=== PATIENT | male | born 1980 | race Caucasian/White ===

== ENCOUNTER 2017-01-12 13:02 | Inpatient (IN) | payer MEDICAID, OTHER ==
--- NOTE | 2017-01-12 13:59 | ED ---
General Adult HPI - General Chief complaint: Altered Mental Status Stated complaint: Petition Time Seen by Provider: 01/12/17 13:24 Source: patient, police, RN notes reviewed, old records reviewed Mode of arrival: ambulatory Limitations: no limitations - History of Present Illness Initial comments: This is a 36-year-old male the ER for evaluation, patient is coming in today for evaluation of altered mental status, recent drug use, suicidal thoughts, patient resell colon mass, patient in by PD and petition for psychiatric evaluation - Related Data Home Medications Medication Instructions Recorded Confirmed Cymbalta(Unknown Dose) 1 cap PO DAILY 01/12/17 01/12/17 Naproxen Sodium [Aleve] 220 mg PO BID PRN 01/12/17 01/12/17 Allergies Allergy/AdvReac Type Severity Reaction Status Date / Time No Known Allergies Allergy Verified 01/12/17 13:58 Review of Systems ROS Statement: Those systems with pertinent positive or pertinent negative responses have been documented in the HPI. ROS Other: All systems not noted in ROS Statement are negative. Past Medical History Past Medical History: No Reported History Additional Past Medical History / Comment(s): Congenital Bilat Hearing loss. Pt states he did have bilat hearing aids, however "they broke and I don't have them anymore." History of Any Multi-Drug Resistant Organisms: None Reported Past Surgical History: No Surgical Hx Reported Past Anesthesia/Blood Transfusion Reactions: No Reported Reaction Past Psychological History: Depression Smoking Status: Current every day smoker Past Alcohol Use History: Heavy Additional Past Alcohol Use History / Comment(s): pt reports using 1/2 joint approx 1 x month Past Drug Use History: Cocaine, Heroin, IV Drug Use, Marijuana, Methamphetamine , Opiates, Prescription Drug Abuse Additional Drug Use History / Comment(s): Last used "a couple months ago." General Exam Limitations: no limitations General appearance: alert, in no apparent distress Head exam: Present: atraumatic, normocephalic, normal inspection Eye exam: Present: normal appearance, PERRL, EOMI. Absent: scleral icterus, conjunctival injection, periorbital swelling ENT exam: Present: normal exam, mucous membranes moist Neck exam: Present: normal inspection. Absent: tenderness, meningismus, lymphadenopathy Respiratory exam: Present: normal lung sounds bilaterally. Absent: respiratory distress, wheezes, rales, rhonchi, stridor Cardiovascular Exam: Present: regular rate, normal rhythm, normal heart sounds. Absent: systolic murmur, diastolic murmur, rubs, gallop, clicks GI/Abdominal exam: Present: soft, normal bowel sounds. Absent: distended, tenderness, guarding, rebound, rigid Extremities exam: Present: normal inspection, full ROM, normal capillary refill. Absent: tenderness, pedal edema, joint swelling, calf tenderness Back exam: Present: normal inspection Neurological exam: Present: alert, oriented X3, CN II-XII intact Psychiatric exam: Present: normal affect, normal mood Skin exam: Present: warm, dry, intact, normal color. Absent: rash Course Vital Signs 01/12/17 13:20 Pulse Rate 80 Respiratory 14 Rate Blood Pressure 136/76 O2 Sat by Pulse 99 Oximetry - Reevaluation(s) Reevaluation #1: 01/12/17 13:58 Patient's medically clear for psychiatric evaluation Medical Decision Making - Medical Decision Making 36 male who was seen and evaluated by psychiatry determined in the inpatient psychiatric evaluation and treatment Disposition Clinical Impression: Suicidal ideation, Depression Disposition: TRANSFER TO PSYCH HOSP/UNIT Condition: Fair Referrals: Tera Spann MD [Primary Care Provider] - 1-2 days
[2017-01-12] MEDS ORDERED: LORazepam 1 MG TAB PO STA ×2 (14:55→14:57)
[2017-01-12] MEDS ORDERED: LORazepam 2 MG/ML SYRINGE IM STA (15:25)
[2017-01-12] MEDS ORDERED: diphenhydrAMINE 50 MG/ML 1 ML VIAL IM STA (15:37)
[2017-01-12 16:20] LABS: ALT 70 U/L (21-72); AST 90 U/L (17-59); Alkaline Phosphatase 104 U/L (38-126); Anion Gap 18 mmol/L; Aty Lym Flag Slight; Basophils # (A) 0.1 k/uL (0-0.2); Basophils % (A) 1 %; Blood Urea Nitrogen 17 mg/dL (9-20); CH 33.6; CHCM 37.2; Calcium 9.3 mg/dL (8.4-10.2); Carbon Dioxide 19 mmol/L (22-30); Chloride 101 mmol/L (98-107); Eosinophils # (A) 0.1 k/uL (0-0.7); Eosinophils % (A) 1 %; Glucose 86 mg/dL (74-99); HCT 47.1 % (39.0-53.0); HDW 2.93; HGB 16.5 gm/dL (13.0-17.5); Luc # (Auto) 0.93; Luc % (Auto) 6; Lymphocytes # (A) 3.8 k/uL (1.0-4.8); Lymphocytes % (A) 26 %; MCH 31.9 pg (25.0-35.0); MCHC 35.1 g/dL (31.0-37.0); MCV 90.7 fL (80.0-100.0); Mean Platelet Volume 6.1; Monocytes # (A) 1.2 k/uL (0-1.0); Monocytes % (A) 8 %; Neutrophils # (A) 8.5 k/uL (1.3-7.7); Neutrophils % (A) 58 %; Non-African American GFR(MDRD) >60 (>60 ml/min/1.73 sqM); Potassium 3.7 mmol/L (3.5-5.1); RBC 5.19 m/uL (4.30-5.90); RDW 13.1 % (11.5-15.5); Sodium 138 mmol/L (137-145); Total Bilirubin 1.5 mg/dL (0.2-1.3); WBC 14.7 k/uL (3.8-10.6); WBC (Perox) 15.04
--- NOTE | 2017-01-12 16:32 | ED ---
Medical Decision Making - Lab Data Result diagrams: 01/12/17 16:00 01/12/17 16:00 Lab Results 01/12/17 01/12/17 Range/Units 16:00 16:00 WBC 14.7 H (3.8-10.6) k/uL RBC 5.19 (4.30-5.90) m/uL Hgb 16.5 (13.0-17.5) gm/dL Hct 47.1 (39.0-53.0) % MCV 90.7 (80.0-100.0) fL MCH 31.9 (25.0-35.0) pg MCHC 35.1 (31.0-37.0) g/dL RDW 13.1 (11.5-15.5) % Plt Count 271 (150-450) k/uL Neutrophils % 58 % Lymphocytes % 26 % Monocytes % 8 % Eosinophils % 1 % Basophils % 1 % Neutrophils # 8.5 H (1.3-7.7) k/uL Lymphocytes # 3.8 (1.0-4.8) k/uL Monocytes # 1.2 H (0-1.0) k/uL Eosinophils # 0.1 (0-0.7) k/uL Basophils # 0.1 (0-0.2) k/uL Sodium 138 (137-145) mmol/L Potassium 3.7 (3.5-5.1) mmol/L Chloride 101 (98-107) mmol/L Carbon Dioxide 19 L (22-30) mmol/L Anion Gap 18 mmol/L BUN 17 (9-20) mg/dL Creatinine 0.90 (0.66-1.25) mg/dL Est GFR (MDRD) Af Amer >60 (>60 ml/min/1.73 sqM) Est GFR (MDRD) Non-Af >60 (>60 ml/min/1.73 sqM) Glucose 86 (74-99) mg/dL Calcium 9.3 (8.4-10.2) mg/dL Total Bilirubin 1.5 H (0.2-1.3) mg/dL AST 90 H (17-59) U/L ALT 70 (21-72) U/L Alkaline Phosphatase 104 (38-126) U/L Total Protein 8.0 (6.3-8.2) g/dL Albumin 4.6 (3.5-5.0) g/dL Disposition Clinical Impression: Suicidal ideation, Depression Disposition: TRANSFER TO PSYCH HOSP/UNIT Condition: Fair Referrals: Tera Spann MD [REFERRING] - 1-2 days Procedures - Restraint - Face to Face Restraint Occurrence 1 Patient's Immediate Situation: Endangers self safety, Endangers others' safety Patient's Reaction to the Intervention: Uncooperative, Angry, Belligerent, Nervous, Aggressive Patient's Medical & Behavioral Condition: Anxious Need to Continue or Terminate Restraint or Seclusion: Continue
[2017-01-12 16:36] LABS: Manual Review Performed
[2017-01-13] MEDS ORDERED: Acetaminophen-Codeine 300-30mg TAB PO STA (10:39)
[2017-01-13] MEDS ORDERED: HYDROcodone/APAP 5-325MG 1 EACH TAB PO STA (10:40)
[2017-01-13] MEDS ORDERED: MAG HYDROX/AL HYDROX/SIMETH 30 ML CUP PO PRN (12:42)
[2017-01-13] MEDS ORDERED: ZIPRASIDONE 20 MG VIAL IM PRN (12:42)
[2017-01-13] MEDS ORDERED: MAGNESIUM HYDROXIDE 2,400 MG/10 ML CUP PO PRN (12:42)
[2017-01-13] MEDS ORDERED: LORazepam 2 MG/ML SYRINGE IM PRN (12:46)
[2017-01-13] MEDS: NICOTINE 21MG/24HR PATCH TRANSDERM SCH (12:54)
[2017-01-13] MEDS ORDERED: WATER FOR INJECTION, STERILE 10 ML IV ONE (12:57)
[2017-01-14] MEDS: LORazepam 1 MG TAB PO PRN ×2 (04:09→15:46)
[2017-01-14] MEDS: ACETAMINOPHEN TAB 325 MG TAB PO PRN ×2 (04:09→15:45)
[2017-01-14 05:44] VITALS: BP 124/77; PULSE 99; RESP 20; TEMP 98.1
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
[2017-01-14] MEDS: NICOTINE 21MG/24HR PATCH TRANSDERM SCH (09:02)
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
--- NOTE | 2017-01-14 13:46 | P.DS ---
Providers Date of admission: 01/13/17 12:19 Attending physician: Josué Blackwell MD Consults: 01/13/17 21:16 Consult Physician Routine Consulting Provider: Faraz Melendrez Reason/Comments: h&p Do you want consulting provider notified?: Already Contacted Primary care physician: Faraz Melendrez - Discharge Diagnosis(es) (1) Amphetamine-induced psychotic disorder Current Visit: Yes Status: Resolved Priority: High (2) Methamphetamine use disorder, moderate Current Visit: Yes Status: Chronic Priority: High (3) Opioid use disorder, severe, dependence Current Visit: Yes Status: Chronic Priority: Medium Hospital Course: He is 36-year-old single male who has a history of polysubstance use disorder. He presented to the [facility] in voluntarily but signed consent for voluntary admission when he arrived on the psychiatric unit. He had a history of psychosis developing in the context of IV use of methamphetamine. He received a biopsychosocial psychosocial assessment on the unit. The it consultant tube washer completed the physical examination. Although his management in the ED he required IM sedatives and restraint he showed no behavioral problems when he arrived on the psychiatric unit. His psychosis quickly abated and on the second day of admission he showed no signs or symptoms of psychosis. His thinking was concrete but organized, coherent and goal directed. He expressed no psychotic symptoms such as auditory or visual hallucinations, ideas reference, thought insertion, thought broadcasting or thought control. He recognized that his admission and changes in mental status was related to his IV use of methamphetamine. He expressed interest in outpatient mental health and substance abuse treatment. The social insurance administrator has arranged for him to have an appointment with [facility]. Time of discharge he denied thoughts of or suicide. He denied homicidal ideation towards his uncle. Patient Condition at Discharge: Fair Plan - Discharge Summary New Discharge Prescriptions: Nicotine 21Mg/24Hr Patch [Habitrol] 1 patch TRANSDERM DAILY #14 patch Discharge Medication List Cymbalta(Unknown Dose) 1 cap PO DAILY 01/12/17 [History] Naproxen Sodium [Aleve] 220 mg PO BID PRN 01/12/17 [History] Nicotine 21Mg/24Hr Patch [Habitrol] 1 patch TRANSDERM DAILY #14 patch 01/14/17 [ Rx] Follow up Appointment(s)/Referral(s): [facility] [Outside] - 02/27/17 3:00 pm (w/ Belkis Deutsch) Tera Spann MD [REFERRING] - 1-2 days Discharge Disposition: HOME SELF-CARE
== END 2017-01-14 16:07 | disposition home or self-care (01) | DRG 897 ==
LOC: EC 13:02 → 3MHU 01-13 12:19
PROVIDERS: ADMIT Psychiatry & Neurology Psychiatry; ATTEND Psychiatry & Neurology Psychiatry
DX: F19.259 Other psychoactive substance dependence with psychoactive substance-induced psychotic disorder, unspecified (principal); R45.851 Suicidal ideations; F90.9 Attention-deficit hyperactivity disorder, unspecified type; H90.3 Sensorineural hearing loss, bilateral; Z78.1 Physical restraint status; F32.9 Major depressive disorder, single episode, unspecified; F60.2 Antisocial personality disorder; R45.850 Homicidal ideations; R21 Rash and other nonspecific skin eruption; F17.200 Nicotine dependence, unspecified, uncomplicated; Z79.1 Long term (current) use of non-steroidal anti-inflammatories (NSAID); Z79.899 Other long term (current) drug therapy; Z86.19 Personal history of other infectious and parasitic diseases; Z62.810 Personal history of physical and sexual abuse in childhood; Z65.3 Problems related to other legal circumstances; Z81.3 Family history of other psychoactive substance abuse and dependence; Z71.51 Drug abuse counseling and surveillance of drug abuser
CPT/HCPCS: 36415; 80053; 80306; 82075; 84443; 85025; 99285

== ENCOUNTER 2017-01-31 06:46 | Inpatient (IN) | payer MEDICAID, OTHER ==
--- NOTE | 2017-01-31 07:24 | ED ---
Psych HPI - General Chief Complaint: Psychiatric Symptoms Stated Complaint: mental health Time Seen by Provider: 01/31/17 07:00 Source: patient, RN notes reviewed Mode of arrival: ambulatory - History of Present Illness Initial Comments: Is a 36-year-old male history depression and history of drug abuse who is here today because he is feeling depressed and suicidal. He's had thoughts of shooting himself overdosing jumping off a bridge spine and is recovering addict be states she used methamphetamine and heroin 5 days ago he also used marijuana last night. He denies any alcohol use. He does have prior suicide attempts apparently. He denies any fevers chills nausea vomiting sweats or other symptoms MD Complaint: suicidal ideation, feels depressed - Related Data Home Medications Medication Instructions Recorded Confirmed Cymbalta(Unknown Dose) 1 cap PO DAILY 01/12/17 01/12/17 Naproxen Sodium [Aleve] 220 mg PO BID PRN 01/12/17 01/12/17 Previous Rx's Medication Instructions Recorded Nicotine 21Mg/24Hr Patch [Habitrol] 1 patch TRANSDERM DAILY #14 patch 01/14/17 Allergies Allergy/AdvReac Type Severity Reaction Status Date / Time No Known Allergies Allergy Verified 01/14/17 16:04 Review of Systems ROS Statement: Those systems with pertinent positive or pertinent negative responses have been documented in the HPI. ROS Other: All systems not noted in ROS Statement are negative. Past Medical History Past Medical History: No Reported History Additional Past Medical History / Comment(s): Congenital Bilat Hearing loss. Pt states he did have bilat hearing aids, however "they broke and I don't have them anymore." History of Any Multi-Drug Resistant Organisms: None Reported Past Surgical History: No Surgical Hx Reported Past Anesthesia/Blood Transfusion Reactions: No Reported Reaction Past Psychological History: Depression Smoking Status: Current every day smoker Past Alcohol Use History: Heavy Additional Past Alcohol Use History / Comment(s): pt reports using 1/2 joint approx 1 x month Past Drug Use History: Cocaine, Heroin, IV Drug Use, Marijuana, Methamphetamine , Opiates, Prescription Drug Abuse Additional Drug Use History / Comment(s): Last used "a couple months ago." General Exam - General Exam Comments Initial Comments: This is a well-developed well-nourished awake alert oriented 3 male Limitations: no limitations General appearance: alert, in no apparent distress Head exam: Present: atraumatic, normocephalic, normal inspection Eye exam: Present: normal appearance, PERRL, EOMI. Absent: scleral icterus, conjunctival injection, periorbital swelling ENT exam: Present: normal exam, mucous membranes moist Neck exam: Present: normal inspection. Absent: tenderness, meningismus, lymphadenopathy Respiratory exam: Present: normal lung sounds bilaterally. Absent: respiratory distress, wheezes, rales, rhonchi, stridor Cardiovascular Exam: Present: regular rate, normal rhythm, normal heart sounds. Absent: systolic murmur, diastolic murmur, rubs, gallop, clicks GI/Abdominal exam: Present: soft, normal bowel sounds. Absent: distended, tenderness, guarding, rebound, rigid Extremities exam: Present: normal inspection, full ROM, normal capillary refill. Absent: tenderness, pedal edema, joint swelling, calf tenderness Back exam: Present: normal inspection Neurological exam: Present: alert, oriented X3, CN II-XII intact Psychiatric exam: Present: depressed, flat affect, suicidal ideation Skin exam: Present: warm, dry, intact, normal color. Absent: rash Course Vital Signs 01/31/17 06:48 Temperature 96.8 F L Pulse Rate 68 Respiratory 20 Rate Blood Pressure 127/58 O2 Sat by Pulse 100 Oximetry Medical Decision Making - Medical Decision Making The patient was evaluated by the [facility] service patient will be admitted for inpatient treatment of depression and suicidal ideation. - Lab Data Lab Results 01/31/17 Range/Units 07:15 Urine Opiates Screen Detected H (NotDetected) Ur Oxycodone Screen Not Detected (NotDetected) Urine Methadone Screen Not Detected (NotDetected) Ur Propoxyphene Screen Not Detected (NotDetected) Ur Barbiturates Screen Not Detected (NotDetected) U Tricyclic Antidepress Not Detected (NotDetected) Ur Phencyclidine Scrn Not Detected (NotDetected) Ur Amphetamines Screen Detected H (NotDetected) U Methamphetamines Scrn Detected H (NotDetected) U Benzodiazepines Scrn Not Detected (NotDetected) Urine Cocaine Screen Not Detected (NotDetected) U Marijuana (THC) Screen Detected H (NotDetected) Disposition Clinical Impression: Depression, Suicidal ideation, Substance abuse Disposition: TRANSFER TO PSYCH HOSP/UNIT Condition: Stable
[2017-01-31] MEDS: NICOTINE 21MG/24HR PATCH TRANSDERM SCH (08:15)
[2017-01-31] MEDS ORDERED: ZIPRASIDONE 20 MG VIAL IM PRN (13:26)
[2017-01-31] MEDS ORDERED: MAG HYDROX/AL HYDROX/SIMETH 30 ML CUP PO PRN (13:26)
[2017-01-31] MEDS ORDERED: ACETAMINOPHEN TAB 325 MG TAB PO PRN (13:26)
[2017-01-31] MEDS ORDERED: MAGNESIUM HYDROXIDE 2,400 MG/10 ML CUP PO PRN (13:26)
[2017-01-31] MEDS ORDERED: LORazepam 1 MG TAB PO PRN (13:31)
[2017-01-31] MEDS: cloNIDine HCL 0.1 MG TAB PO SCH (19:40)
--- NOTE | 2017-01-31 20:48 | CONS ---
DATE OF CONSULTATION: 01/31/2017 I am covering for Dr. Melendrez. REASON FOR CONSULTATION: Advice regarding substance abuse and other issues, requested by Psychiatry. HISTORY OF PRESENT ILLNESS: This 36-year-old gentleman with a past medical history of congenital bilateral hearing loss, history of depression, history of nicotine dependence, polysubstance abuse, including cocaine, heroin and IV drug abuse, history of marijuana, history of methamphetamine, opiate prescription drug abuse, being followed by Dr. Melendrez in the outpatient setting, was admitted for psychiatric evaluation. The patient was feeling suicidal and depressed. The patient used methamphetamine and heroin about 5 days ago and used marijuana last night. There is no history of any fever, rigor, or chills. No history of any headache, loss of consciousness, seizures. The urine screen showed opiates, amphetamines as well as THC. The patient complained of occasional cough. PAST MEDICAL HISTORY: 1. History of polysubstance abuse. 2. History of depression. 3. History of nicotine dependence. 4. Congenital bilateral hearing loss. Medications are: 1. Cymbalta 60 mg daily. 2. Vitamin C 500 daily. 3. Aleve 440 mg b.i.d. p.r.n. ALLERGIES: NONE. FAMILY HISTORY: No history of heart disease or strokes in the family. SOCIAL HISTORY: Polysubstance abuse, including smoking and alcohol. REVIEW OF SYSTEMS: ENT: No diminished vision but diminished hearing, as mentioned earlier. CARDIOVASCULAR SYSTEM: No angina, palpitations. RESPIRATORY SYSTEM: No cough, hemoptysis. GI: No nausea, vomiting. : No dysuria. NERVOUS SYSTEM: No numbness or weakness. ALLERGY/IMMUNOLOGY: No asthma or hayfever. MUSCULOSKELETAL: As mentioned earlier. HEMATOLOGY/ONCOLOGY: No history of anemia. ENDOCRINE: No history of diabetes. CONSTITUTIONAL: As mentioned earlier. DERMATOLOGY: Negative. RHEUMATOLOGY: Negative. PSYCHIATRY: As mentioned earlier. PHYSICAL EXAMINATION: Patient is alert and oriented x3. Pulse is 67. Blood pressure is 117/62, respiration 16, temperature 97 degrees, pulse ox 97% on room air. HEENT: Conjunctivae normal. NECK: No jugular venous distention. CARDIOVASCULAR SYSTEM: S1, S2 muffled. RESPIRATORY SYSTEM: Breath sounds diminished at the bases. No rhonchi. No crackles. ABDOMEN: Soft, nontender. No mass palpable. LEGS: No edema. No swelling. NERVOUS SYSTEM: Higher functions as mentioned earlier. Moves all 4 limbs. No focal motor or sensory deficit. LYMPHATICS: No lymph node palpable in neck, axillae or groin. SKIN: No ulcer, rash, bleeding. LABS: UA noted. ASSESSMENT: 1. Status post polysubstance abuse. 2. Cough, possibly acute bronchitis. 3. History of nicotine dependence. 4. History of depression. 5. History of congenital bilateral deafness. 6. History of cocaine. 7. History of heroin. 8. History of IV drug abuse. 9. History of methamphetamine. 10. FULL CODE. RECOMMENDATIONS AND DISCUSSION: In this 36-year-old gentleman who presented with multiple complex medical issues, we will monitor the patient closely. I would wait for the basic labs; I will be happy to review any abnormalities in the basic labs. Otherwise, continue the current medications. The patient will be started on a small dose of clonidine. I would also recommend substance abuse counseling and rehab also. We will follow the patient closely. The patient may be asked to follow up with Dr. Melendrez closely after discharge. Thank you, Dr. Moreno, for letting us participate in the care of this patient.
[2017-02-01 08:38] LABS: Basophils # (A) 0.1 k/uL (0-0.2); Basophils % (A) 1 %; CH 32.7; CHCM 34.9; Eosinophils # (A) 0.2 k/uL (0-0.7); Eosinophils % (A) 3 %; HCT 48.2 % (39.0-53.0); HDW 3.06; HGB 16.2 gm/dL (13.0-17.5); Luc # (Auto) 0.25; Luc % (Auto) 4; Lymphocytes # (A) 2.4 k/uL (1.0-4.8); Lymphocytes % (A) 41 %; MCH 31.7 pg (25.0-35.0); MCHC 33.6 g/dL (31.0-37.0); MCV 94.3 fL (80.0-100.0); Mean Platelet Volume 6.4; Monocytes # (A) 0.4 k/uL (0-1.0); Monocytes % (A) 6 %; Neutrophils # (A) 2.5 k/uL (1.3-7.7); Neutrophils % (A) 44 %; RBC 5.11 m/uL (4.30-5.90); WBC 5.7 k/uL (3.8-10.6); WBC (Perox) 6.08
[2017-02-01 08:46] LABS: ALT 49 U/L (21-72); AST 41 U/L (17-59); Alkaline Phosphatase 75 U/L (38-126); Anion Gap 9 mmol/L; Blood Urea Nitrogen 12 mg/dL (9-20); Calcium 9.4 mg/dL (8.4-10.2); Carbon Dioxide 32 mmol/L (22-30); Chloride 102 mmol/L (98-107); Glucose 99 mg/dL (74-99); Non-African American GFR(MDRD) >60 (>60 ml/min/1.73 sqM); Potassium 4.5 mmol/L (3.5-5.1); Sodium 143 mmol/L (137-145); Total Bilirubin 0.8 mg/dL (0.2-1.3); Total Protein 7.5 g/dL (6.3-8.2)
[2017-02-01] MEDS: NICOTINE 21MG/24HR PATCH TRANSDERM SCH ×2 (08:46→08:48)
[2017-02-01] MEDS: cloNIDine HCL 0.1 MG TAB PO SCH (08:47)
[2017-02-01] MEDS ORDERED: DOXEPIN 10 MG CAP PO PRN (11:19)
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
[2017-02-01] MEDS: DULoxetine HCL 30 MG CAPSULE.DR PO SCH (12:12)
[2017-02-01] MEDS: VENLAFAXINE HCL ER 75 MG CAP PO SCH (12:12)
[2017-02-02] MEDS: cloNIDine HCL 0.1 MG TAB PO SCH (10:15)
[2017-02-02] MEDS: DULoxetine HCL 30 MG CAPSULE.DR PO SCH (10:15)
[2017-02-02] MEDS: VENLAFAXINE HCL ER 75 MG CAP PO SCH (10:15)
--- NOTE | 2017-02-02 10:44 | P.PN ---
Progress Note - Text Interval history: The patient is found in his room sleeping he follows me to an interview room. He reports that his mood is better he does feel safer here in the hospital. He was able to sleep throughout the night. He has participated in meals but so far has not attended groups today. He had a support meeting from his girlfriend last evening. We discussed tapering him off of Cymbalta and continuing Effexor XR he is agreeable he is reporting no side effects from the Effexor XR. He has no questions or concerns today. Mental status exam: The patient is alert he is a disheveled appearance he is dressed in his own clothing. Eye contact is appropriate speech is fluent spontaneous nonpressured. He presented with a depressed mood with acute suicidal ideation but feels safe here in the hospital. No homicidal ideation intent or plan. He is endorsing no auditory or visual hallucinations he is endorsing no specific delusions. He does not appear hypomanic or manic. Thought process is linear and goal-directed today. Insight and judgment limited. He is oriented to person place and date. He demonstrates no verbal or physical aggressiveness. He maintains a constricted to bland affect. Plan: The patient will continue his current medications. The Cymbalta is being tapered off. He may benefit from further titration of the Effexor XR. He is encouraged to consider inpatient chemical dependency treatment and call the access number. We will continue to monitor him for safety. He is encouraged to start participating in groups. Vital signs reviewed.
[2017-02-02] MEDS: NICOTINE 21MG/24HR PATCH TRANSDERM SCH (11:24)
[2017-02-02 15:28] VITALS: BMI 23.1
[2017-02-02] MEDS ORDERED: PNEUMOCOCCAL VACC-PNEUMOVAX 23 25 MCG/0.5 ML VIAL IM ONE (15:36)
[2017-02-02] MEDS ORDERED: INFLUENZA VACCINE (3YR+) 60 MCG/0.5 ML SYRINGE IM ONE (15:36)
[2017-02-02] MEDS: NICOTINE 14MG/24HR PATCH TRANSDERM SCH (17:04)
[2017-02-03] MEDS: VENLAFAXINE HCL ER 75 MG CAP PO SCH (08:49)
[2017-02-03] MEDS: cloNIDine HCL 0.1 MG TAB PO SCH (08:49)
[2017-02-03] MEDS: DULoxetine HCL 30 MG CAPSULE.DR PO SCH (08:49)
[2017-02-03] MEDS: NICOTINE 14MG/24HR PATCH TRANSDERM SCH (08:49)
--- NOTE | 2017-02-03 15:35 | P.PN ---
Progress Note - Text SUBJECTIVE: I reviewed the medical record, interviewed Mr. Smith and discussed his treatment and treatment plan during team meeting. He presented to unit voluntarily on 01/31/2017 with complaints of depression and suicidal ideation. He told the admitting psychiatrist that he tried to wrap a cord around his neck in a suicide attempt. We discharged him from the unit on 01/14/2017 with a diagnosis of methamphetamine use disorder, methamphetamine induced psychosis and methamphetamine induced mood disorder. He stated that after discharge he returned to his girlfriend's house and kept his initial appointment with [facility]. On Friday prior to admission he left his girlfriend's house and went to his "father's shop." He alleged that he went to his father's shop as he was thinking about suicide. The friend called him when he was at his father's shop and invited him to "play video games". At his friend's home he injected methamphetamine and heroin. He stated that he did not sleep until the following when he returned to his girlfriend's house and took some [id number] sleeping medication and "drank a pint of whiskey." He stated that he was not truthful honest during his last hospitalization. When he left the hospital he was still "depressed" and having "thoughts of suicide." He slept last night without taking the 10 mg dose of Sinequan. He feels depressed but denied current thoughts of or suicide. He denied side effects to the current dose of Effexor XR. He is denying opiate withdrawal symptoms. OBJECTIVE: He presented as a casually groomed 36-year-old male who was pleasant on approach. He maintained eye contact and appeared to attend to the interview. He had no distinguishing features or prominent physical abnormalities. He had a blunted but bright facial expression. He was alert and oriented to person, place and time. He showed no abnormality of psychomotor activity. He had no abnormal involuntary movements. His speech was spontaneous with normal rate, rhythm and volume. He and articulation difficulties. His affect was blunted but stable and appropriate. He denied current suicidal ideation or wishes. He denied homicidal ideation. He expressed depressive cognitions including helplessness, hopelessness and worthlessness. He did not express ideas reference or paranoid ideation. His thinking was abstract. Associations were coherent and logical. He denied hallucinations and did not appear to responding to internal stimuli. ASSESSMENT: He appears moderately mentally ill and improved from admission. He is minimizing the effect of his methamphetamine and opiate use on his mood, cognition and behavior. PLAN: Continue Effexor XR 75 mg daily and titrated according to clinical response and tolerance. Continue Sinequan 10 mg at bedtime when necessary for sleep. Discontinue clonidine 1 mg daily prescribed by Dr. Cisneros for opiate withdrawal symptoms. Encourage participation in therapeutic groups and activities. Evaluate clinical status response to treatment daily basis.
[2017-02-04] MEDS: NICOTINE 14MG/24HR PATCH TRANSDERM SCH (08:41)
[2017-02-04] MEDS: VENLAFAXINE HCL ER 75 MG CAP PO SCH (08:42)
[2017-02-04] MEDS ORDERED: diphenhydrAMINE 50 MG CAP PO PRN (11:20)
[2017-02-04 11:25] LABS: Appearance,Urine Clear (Clear); Bilirubin,Urine Negative (Negative); Glucose,Urine (UA) Negative (Negative); Ketones,Urine Negative (Negative); Leukocyte Esterase,Urine Negative (Negative); Nitrite,Urine Negative (Negative); Protein,Urine Trace (Negative); Specific Gravity,Urine 1.016 (1.001-1.035); UA Billing (MACRO vs. MICRO) CHEM; Urobilinogen,Urine <2.0 mg/dL (<2.0)
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
[2017-02-04] MEDS: NAPROXEN 250 MG TAB PO PRN (23:03)
[2017-02-05 01:50] VITALS: PULSE 74; RESP 18
[2017-02-05] MEDS: NICOTINE 14MG/24HR PATCH TRANSDERM SCH (09:04)
[2017-02-05] MEDS: VENLAFAXINE HCL ER 150 MG CAP PO SCH (09:04)
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
[2017-02-05] MEDS ORDERED: LORazepam 1 MG TAB PO STA (23:35)
[2017-02-05] MEDS: NAPROXEN 250 MG TAB PO PRN (23:51)
[2017-02-06 02:12] VITALS: BP 116/65; TEMP 97.9
[2017-02-06] MEDS: VENLAFAXINE HCL ER 150 MG CAP PO SCH (08:46)
[2017-02-06] MEDS: NICOTINE 14MG/24HR PATCH TRANSDERM SCH (08:46)
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
== END 2017-02-06 12:48 | disposition home or self-care (01) | DRG 885 ==
LOC: EC 06:46 → 3MHU 13:14
PROVIDERS: ADMIT Psychiatry & Neurology Psychiatry; ATTEND Psychiatry & Neurology Psychiatry
DX: F33.2 Major depressive disorder, recurrent severe without psychotic features (principal); F11.20 Opioid dependence, uncomplicated; R45.851 Suicidal ideations; F15.20 Other stimulant dependence, uncomplicated; F12.90 Cannabis use, unspecified, uncomplicated; B19.20 Unspecified viral hepatitis C without hepatic coma; H91.93 Unspecified hearing loss, bilateral; F17.200 Nicotine dependence, unspecified, uncomplicated; F41.1 Generalized anxiety disorder; F60.3 Borderline personality disorder; F90.9 Attention-deficit hyperactivity disorder, unspecified type; G25.81 Restless legs syndrome; Z65.3 Problems related to other legal circumstances; Z91.5 Personal history of self-harm; Z71.6 Tobacco abuse counseling; Z81.3 Family history of other psychoactive substance abuse and dependence
CPT/HCPCS: 80053; 80306; 81003; 82075; 84443; 85025; 90686; 90732; 99285

== ENCOUNTER 2017-04-02 21:01 | Emergency (ER) | payer OTHER ==
[2017-04-02 21:13] VITALS: BP 137/77; PULSE 98; RESP 16; TEMP 98.3
--- NOTE | 2017-04-02 21:33 | ED ---
Overdose HPI - General Chief Complaint: Overdose Stated Complaint: overdose Time Seen by Provider: 04/02/17 21:15 Source: patient Mode of arrival: EMS Limitations: no limitations - History of Present Illness Initial Comments: Patient presented to the emergency department with a reported chief complaint overdose. According to EMS, they gave him 2 mg IV Narcan without response. On their initial arrival to the scene, they stated the patient was not breathing, however after Narcan he woke up and had a normal GCS and respiratory rate. - Related Data Home Medications Medication Instructions Recorded Confirmed Naproxen Sodium [Aleve] 440 mg PO BID PRN 01/12/17 01/31/17 Ascorbic Acid [Vitamin C] 500 mg PO DAILY 01/31/17 01/31/17 Previous Rx's Medication Instructions Recorded Nicotine 14Mg/24Hr Patch [Habitrol] 1 patch TRANSDERM DAILY 7 Days 02/06/17 Venlafaxine HCl ER [Effexor XR] 150 mg PO DAILY 30 Days 02/06/17 Allergies Allergy/AdvReac Type Severity Reaction Status Date / Time No Known Allergies Allergy Verified 02/02/17 15:32 Review of Systems ROS Statement: Those systems with pertinent positive or pertinent negative responses have been documented in the HPI. ROS Other: All systems not noted in ROS Statement are negative. Past Medical History Past Medical History: No Reported History Additional Past Medical History / Comment(s): Congenital Bilat Hearing loss. Pt states he did have bilat hearing aids, however "they broke and I don't have them anymore." History of Any Multi-Drug Resistant Organisms: None Reported Past Surgical History: No Surgical Hx Reported Past Anesthesia/Blood Transfusion Reactions: No Reported Reaction Past Psychological History: Depression Smoking Status: Current every day smoker Past Alcohol Use History: Heavy Additional Past Alcohol Use History / Comment(s): pt reports using 1/2 joint approx 1 x month Past Drug Use History: Cocaine, Heroin, IV Drug Use, Marijuana, Methamphetamine , Opiates, Prescription Drug Abuse Additional Drug Use History / Comment(s): Last used "a couple months ago." - Past Family History Father Family Medical History: Myocardial Infarction (MS) General Exam Limitations: no limitations General appearance: alert, in no apparent distress Head exam: Present: atraumatic, normocephalic, normal inspection Respiratory exam: Absent: respiratory distress Extremities exam: Present: normal inspection Neurological exam: Present: alert, oriented X3 Psychiatric exam: Present: normal affect Course Vital Signs 04/02/17 21:11 Temperature 98.3 F Pulse Rate 98 Respiratory 16 Rate Blood Pressure 137/77 O2 Sat by Pulse 96 Oximetry Medical Decision Making - Medical Decision Making When I went to evaluate this patient, he was talking on the phone. Therefore I left the room, with the intent to return for my history and physical. However, shortly thereafter I was informed by the nursing staff that the patient walked out. I never reevaluated the patient. I was unaware that he was leaving. Disposition Clinical Impression: Drug overdose Disposition: Left Against Medical Advice Condition: Good
== END 2017-04-02 21:57 | disposition left against medical advice (07) ==
LOC: EC 21:01
DX: T50.901A Poisoning by unspecified drugs, medicaments and biological substances, accidental (unintentional), initial encounter (principal); F17.200 Nicotine dependence, unspecified, uncomplicated; Z79.899 Other long term (current) drug therapy
CPT/HCPCS: 93005; 99284

== ENCOUNTER 2017-04-16 09:40 | Emergency (ER) | payer OTHER ==
[2017-04-16 09:51] VITALS: RESP 16; TEMP 98.7
--- NOTE | 2017-04-16 10:34 | ED ---
Psych HPI - General Chief Complaint: Psychiatric Symptoms Stated Complaint: mental health Time Seen by Provider: 04/16/17 10:12 Source: police Mode of arrival: ambulatory - History of Present Illness Initial Comments: Greta with his girlfriend, they were together for 12 years and they do not have any children together and he was quite upset he was advised he was expressing on the Facebook that he won't harm himself that was reported to the Verna Alcantara and ramon have attempted to get to the hospital. In the hospital or department of emergency medicine he denies any suicidal ideation or any suicidal plan or any homicidal ideation. He is requesting to go home. Review of systems is negative for any physical complaints secondary headaches no chest pain or shortness of breath. He does smoke weed when he denies any other street drugs and any alcohol today - Related Data Home Medications Medication Instructions Recorded Confirmed Naproxen Sodium [Aleve] 440 mg PO BID PRN 01/12/17 04/16/17 Ascorbic Acid [Vitamin C] 500 mg PO DAILY 01/31/17 04/16/17 Cholecalciferol [Vitamin D3] 1,000 unit PO DAILY 04/16/17 04/16/17 Mirtazapine [Remeron] 30 mg PO HS 04/16/17 04/16/17 Venlafaxine HCl ER [Effexor Xr] 225 mg PO DAILY 04/16/17 04/16/17 Previous Rx's Medication Instructions Recorded Nicotine 14Mg/24Hr Patch [Habitrol] 1 patch TRANSDERM DAILY 7 Days 02/06/17 Allergies Allergy/AdvReac Type Severity Reaction Status Date / Time No Known Allergies Allergy Verified 04/16/17 09:52 Review of Systems ROS Statement: Those systems with pertinent positive or pertinent negative responses have been documented in the HPI. ROS Other: All systems not noted in ROS Statement are negative. Past Medical History Past Medical History: No Reported History, Hypertension Additional Past Medical History / Comment(s): Congenital Bilat Hearing loss. Pt states he did have bilat hearing aids, however "they broke and I don't have them anymore." History of Any Multi-Drug Resistant Organisms: None Reported Past Surgical History: No Surgical Hx Reported, Appendectomy Additional Past Surgical History / Comment(s): bilateral tube placed iin ears. Past Anesthesia/Blood Transfusion Reactions: No Reported Reaction Past Psychological History: Depression Smoking Status: Current every day smoker Past Alcohol Use History: Heavy Additional Past Alcohol Use History / Comment(s): pt reports using 1/2 joint approx 1 x month Past Drug Use History: Cocaine, Heroin, IV Drug Use, Marijuana, Methamphetamine , Opiates, Prescription Drug Abuse Additional Drug Use History / Comment(s): Last used "a couple months ago." - Past Family History Father Family Medical History: Myocardial Infarction (ID) General Exam - General Exam Comments Initial Comments: General: The patient is awake and alert, in no distress, and does not appear acutely ill. Skin: Skin is warm and dry and no rashes or lesions are noted. Eye: Pupils are equal, round and reactive to light, extra-ocular movements are intact; there is normal conjunctiva bilaterally. Ears, nose, mouth and throat: There are moist mucous membranes and no oral lesions. Neck: The neck is supple, there is no tenderness or JVD. Cardiovascular: There is a regular rate and rhythm. No murmur, rub or gallop is appreciated. Respiratory: To auscultation bilateral, no wheezing no rhonchi no distress respiratory sue noticed Gastrointestinal: Soft, non-distended, non-tender abdomen without masses or organomegaly noted. There is no rebound or guarding present. Bowel sounds are unremarkable. Back: There is no tenderness to palpation in the midline. There is no obvious deformity. Musculoskeletal: Normal ROM, no tenderness, There is no pedal edema. There is no calf tenderness or swelling. No cords were appreciated. Neurological: CN II-XII intact, Cranial nerves III through XII are intact. There are no obvious motor or sensory deficits. Coordination appears grossly intact. Speech is normal. Psychiatric: Cooperative, seems a bit manic pressured speech, high energy but denies any suicidal or homicidal ideation Limitations: no limitations Course Vital Signs 04/16/17 09:47 Temperature 98.7 F Pulse Rate 70 Respiratory 16 Rate Blood Pressure 134/80 Alcohol screening as well as urine drug screen was ordered and will consult to psychiatry services - Reevaluation(s) Reevaluation #1: 04/16/17 12:00 Is in was reassessed a few times last time 11:30 patient was informed that he be admitted inpatient to the psych facility, that made him very upset and he is quite loud quite comfortably appearing 7. At that point ordered Ativan 2 mg by mouth which she refused to take for patient safety and the other staff and other patient's safety and will restrain him if necessary and the Geodon 20 mg intramuscularly is ordered to sedate him Medical Decision Making - Lab Data Lab Results 04/16/17 Range/Units 11:23 Urine Opiates Screen Detected H (NotDetected) Ur Oxycodone Screen Not Detected (NotDetected) Urine Methadone Screen Not Detected (NotDetected) Ur Propoxyphene Screen Not Detected (NotDetected) Ur Barbiturates Screen Not Detected (NotDetected) U Tricyclic Antidepress Not Detected (NotDetected) Ur Phencyclidine Scrn Not Detected (NotDetected) Ur Amphetamines Screen Not Detected (NotDetected) U Methamphetamines Scrn Detected H (NotDetected) U Benzodiazepines Scrn Not Detected (NotDetected) Urine Cocaine Screen Detected H (NotDetected) U Marijuana (THC) Screen Detected H (NotDetected) Disposition Clinical Impression: Suicidal ideation Disposition: ADMITTED IP TO THIS [facility] Referrals: Faraz Melendrez MD [Primary Care Provider] - 1-2 days
[2017-04-16] MEDS ORDERED: LORazepam 1 MG TAB PO STA (11:35)
[2017-04-16] MEDS ORDERED: ZIPRASIDONE 20 MG VIAL IM STA (11:55)
[2017-04-16] MEDS ORDERED: NICOTINE 21MG/24HR PATCH TRANSDERM STA (12:28)
[2017-04-16 13:31] VITALS: BP 115/58; PULSE 83
== END 2017-04-16 13:41 | disposition home or self-care (01) ==
LOC: EC 09:40
DX: R45.851 Suicidal ideations (principal); F32.9 Major depressive disorder, single episode, unspecified; Z53.20 Procedure and treatment not carried out because of patient's decision for unspecified reasons; F17.200 Nicotine dependence, unspecified, uncomplicated; Z79.899 Other long term (current) drug therapy
CPT/HCPCS: 99284; 82075; 80306; S4990

== ENCOUNTER 2017-04-27 21:26 | Emergency (ER) | payer OTHER ==
[2017-04-27 21:34] VITALS: BP 135/79; PULSE 108; RESP 18; TEMP 98
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
== END 2017-04-27 21:56 | disposition left against medical advice (07) ==
LOC: EC 21:26
DX: T40.1X1A Poisoning by heroin, accidental (unintentional), initial encounter (principal); F32.9 Major depressive disorder, single episode, unspecified; F17.200 Nicotine dependence, unspecified, uncomplicated; Z53.29 Procedure and treatment not carried out because of patient's decision for other reasons; Z79.899 Other long term (current) drug therapy
CPT/HCPCS: 99284

== ENCOUNTER 2017-06-21 03:53 | Emergency (ER) | payer OTHER ==
[2017-06-21] MEDS ORDERED: DIPH,PERTUS(ACELL)TETVAC-LF 0.5 ML VIAL IM ONE (04:20)
[2017-06-21 04:41] LABS: Basophils # (A) 0.1 k/uL (0-0.2); Basophils % (A) 1 %; CH 33.7; CHCM 35.7; Eosinophils # (A) 0.1 k/uL (0-0.7); Eosinophils % (A) 1 %; HCT 46.8 % (39.0-53.0); HDW 2.89; HGB 16.2 gm/dL (13.0-17.5); Luc # (Auto) 0.36; Luc % (Auto) 4; Lymphocytes # (A) 1.9 k/uL (1.0-4.8); Lymphocytes % (A) 20 %; MCH 32.8 pg (25.0-35.0); MCHC 34.6 g/dL (31.0-37.0); MCV 94.7 fL (80.0-100.0); Mean Platelet Volume 6.8; Monocytes # (A) 0.7 k/uL (0-1.0); Monocytes % (A) 8 %; Neutrophils # (A) 6.4 k/uL (1.3-7.7); Neutrophils % (A) 67 %; RBC 4.94 m/uL (4.30-5.90); RDW 14.3 % (11.5-15.5); WBC 9.6 k/uL (3.8-10.6)
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
[2017-06-21 04:56] LABS: Anion Gap 17 mmol/L; Blood Urea Nitrogen 13 mg/dL (9-20); Calcium 8.9 mg/dL (8.4-10.2); Carbon Dioxide 18 mmol/L (22-30); Chloride 107 mmol/L (98-107); Glucose 93 mg/dL (74-99); Non-African American GFR(MDRD) >60 (>60 ml/min/1.73 sqM); Potassium 4.2 mmol/L (3.5-5.1); Sodium 142 mmol/L (137-145)
[2017-06-21 05:06] LABS: Alcohol 178 mg/dL
--- NOTE | 2017-06-21 05:38 | CT ---
EXAM: CT Head Without Intravenous Contrast CLINICAL HISTORY: Reason: trauma TECHNIQUE: Axial computed tomography images of the head/brain without intravenous contrast. Coronal and sagittal reformats were obtained. CTDI is 57.40 mGy and DLP is 1133.30 mGy-cm. This CT exam was performed using one or more of the following dose reduction techniques: automated exposure control, adjustment of the mA and/or kV according to patient size, and/or use of iterative reconstruction technique. COMPARISON: No relevant prior studies available. FINDINGS: Brain: Unremarkable. No hemorrhage. No edema. Ventricles: Unremarkable. No ventriculomegaly. Bones/joints: Unremarkable. No acute fracture. Sinuses: Unremarkable as visualized. No acute sinusitis. Mastoid air cells: Unremarkable as visualized. No mastoid effusion. IMPRESSION: No acute intracranial abnormality. EXAM: CT Cervical Spine Without Intravenous Contrast CLINICAL HISTORY: Reason: trauma TECHNIQUE: Axial computed tomography images of the cervical spine without intravenous contrast. Coronal and sagittal reformats were obtained. CTDI is 19.30 mGy and DLP is 354.30 mGy-cm. This CT exam was performed using one or more of the following dose reduction techniques: automated exposure control, adjustment of the mA and/or kV according to patient size, and/or use of iterative reconstruction technique. COMPARISON: No relevant prior studies available. FINDINGS: Vertebrae: No acute fracture. Cervical spine is well aligned. Discs/spinal canal/neural foramina: No acute findings. No spinal canal stenosis. Soft tissues: Unremarkable. Lung apices: Unremarkable as visualized. IMPRESSION: No evidence of fracture or malalignment.
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
[2017-06-21 07:58] VITALS: RESP 18
[2017-06-21 09:14] VITALS: BP 121/74; PULSE 82; TEMP 97.4
== END 2017-06-21 09:12 | disposition home or self-care (01) ==
LOC: EC 03:53
DX: S02.5XXA Fracture of tooth (traumatic), initial encounter for closed fracture (principal); S01.511A Laceration without foreign body of lip, initial encounter; F10.229 Alcohol dependence with intoxication, unspecified; Y90.6 Blood alcohol level of 120-199 mg/100 ml; R07.9 Chest pain, unspecified; M54.2 Cervicalgia; F32.9 Major depressive disorder, single episode, unspecified; F17.200 Nicotine dependence, unspecified, uncomplicated; Z23 Encounter for immunization; Z79.899 Other long term (current) drug therapy; Y04.0XXA Assault by unarmed brawl or fight, initial encounter
CPT/HCPCS: 12011; 36415; 70450; 70486; 71010; 72125; 80048; 80320; 82075; 85025; 90471; 90715; 99284

== ENCOUNTER 2018-02-28 20:22 | Emergency (ER) | payer OTHER ==
[2018-02-28 20:30] VITALS: TEMP 96.8
[2018-02-28] MEDS ORDERED: SODIUM CHLORIDE 0.9% 1,000 ML IV STA (21:11)
[2018-02-28 21:19] LABS: Basophils % (A) 0 %; Eosinophils # (A) 0.1 k/uL (0-0.7); Eosinophils % (A) 1 %; HCT 45.4 % (39.0-53.0); HGB 16.3 gm/dL (13.0-17.5); Lymphocytes # (A) 2.4 k/uL (1.0-4.8); Lymphocytes % (A) 32 %; MCH 31.8 pg (25.0-35.0); MCHC 35.8 g/dL (31.0-37.0); MCV 88.8 fL (80.0-100.0); Mean Platelet Volume 6.4; Monocytes # (A) 0.6 k/uL (0-1.0); Monocytes % (A) 7 %; Neutrophils # (A) 4.2 k/uL (1.3-7.7); Neutrophils % (A) 57 %; Platelet Count 239 k/uL (150-450); RBC 5.11 m/uL (4.30-5.90); RDW 12.6 % (11.5-15.5); WBC 7.5 k/uL (3.8-10.6)
[2018-02-28 21:30] LABS: ALT 53 U/L (21-72); AST 33 U/L (17-59); Alkaline Phosphatase 75 U/L (38-126); Anion Gap 14 mmol/L; Blood Urea Nitrogen 15 mg/dL (9-20); Calcium 9.5 mg/dL (8.4-10.2); Carbon Dioxide 24 mmol/L (22-30); Chloride 103 mmol/L (98-107); Glucose 106 mg/dL (74-99); Potassium 3.6 mmol/L (3.5-5.1); Sodium 141 mmol/L (137-145); Total Bilirubin 0.6 mg/dL (0.2-1.3); Total Protein 7.3 g/dL (6.3-8.2)
[2018-02-28 21:33] LABS: D-Dimer 0.2 mg/L FEU (<0.60); INR 1.1 (<1.2); Partial Thromboplastin Time 22.9 sec (22.0-30.0); Prothrombin Time 10.4 sec (9.0-12.0)
[2018-02-28 21:39] LABS: Creatine Kinase 198 U/L (55-170)
[2018-02-28 21:46] LABS: Appearance,Urine Clear (Clear); Bilirubin,Urine Negative (Negative); Blood,Urine Negative (Negative); Cellular Casts,Urine 4 /lpf (0); Color,Urine Yellow; Glucose,Urine (UA) Negative (Negative); Granular Casts,Urine 22 /lpf (0); Hyaline Casts,Urine 4 /lpf (0-2); Ketones,Urine 1+ (Negative); Leukocyte Esterase,Urine Negative (Negative); Mucus,Urine Many /hpf; Nitrite,Urine Negative (Negative); Protein,Urine 1+ (Negative); RBC,Urine 1 /hpf (0-5); Specific Gravity,Urine 1.029 (1.001-1.035); WBC,Urine 3 /hpf (0-5)
--- NOTE | 2018-02-28 21:47 | ED ---
Syncope HPI - General Chief Complaint: Syncope Stated Complaint: syncope Time Seen by Provider: 02/28/18 20:42 Source: patient, RN notes reviewed, old records reviewed Mode of arrival: EMS Limitations: no limitations - History of Present Illness Initial Comments: This patient is a 37-year-old male presents emergency Department chief complaint of syncopal episode while he was at dinner. Reports he was sitting down and started to feel dizzy and lightheaded and short of breath. He reports that he has had on the table. When he had this episode he felt that he should be seen in emergency department. They were escorting him outside the restaurant he had a syncopal episode. Patient was caught, ans slowly lowered right onto the ground. He woke up shortly after. He reports he has no complaints at this time. No chest pain or shortness of breath. - Related Data Home Medications Medication Instructions Recorded Confirmed Naproxen Sodium [Aleve] 440 mg PO BID PRN 01/12/17 04/16/17 Ascorbic Acid [Vitamin C] 500 mg PO DAILY 01/31/17 04/16/17 Cholecalciferol [Vitamin D3] 1,000 unit PO DAILY 04/16/17 04/16/17 Mirtazapine [Remeron] 30 mg PO HS 04/16/17 04/16/17 Venlafaxine HCl ER [Effexor Xr] 225 mg PO DAILY 04/16/17 04/16/17 Previous Rx's Medication Instructions Recorded Nicotine 14Mg/24Hr Patch [Habitrol] 1 patch TRANSDERM DAILY 7 Days 02/06/17 patch Amoxicillin 500 mg PO Q8H #30 capsule 06/21/17 Allergies Allergy/AdvReac Type Severity Reaction Status Date / Time No Known Allergies Allergy Verified 02/28/18 20:24 Review of Systems ROS Statement: Those systems with pertinent positive or pertinent negative responses have been documented in the HPI. ROS Other: All systems not noted in ROS Statement are negative. Past Medical History Past Medical History: No Reported History Additional Past Medical History / Comment(s): Congenital Bilat Hearing loss. Pt states he did have bilat hearing aids, however "they broke and I don't have them anymore." History of Any Multi-Drug Resistant Organisms: None Reported Past Surgical History: No Surgical Hx Reported, Appendectomy Additional Past Surgical History / Comment(s): bilateral tube placed iin ears. Past Anesthesia/Blood Transfusion Reactions: No Reported Reaction Past Psychological History: Depression Smoking Status: Current every day smoker Past Alcohol Use History: Heavy Past Drug Use History: Marijuana - Past Family History Father Family Medical History: Myocardial Infarction ([place]) General Exam - General Exam Comments Initial Comments: This is a 37-year-old male. No distress. Limitations: no limitations General appearance: alert, in no apparent distress Head exam: Present: atraumatic, normocephalic, normal inspection Eye exam: Present: normal appearance, PERRL, EOMI. Absent: scleral icterus, conjunctival injection, periorbital swelling ENT exam: Present: normal exam, mucous membranes moist Neck exam: Present: normal inspection. Absent: tenderness, meningismus, lymphadenopathy Respiratory exam: Present: normal lung sounds bilaterally. Absent: respiratory distress, wheezes, rales, rhonchi, stridor Cardiovascular Exam: Present: regular rate, normal rhythm, normal heart sounds. Absent: systolic murmur, diastolic murmur, rubs, gallop, clicks GI/Abdominal exam: Present: soft, normal bowel sounds. Absent: distended, tenderness, guarding, rebound, rigid Extremities exam: Present: normal inspection, full ROM, normal capillary refill. Absent: tenderness, pedal edema, joint swelling, calf tenderness Back exam: Present: normal inspection Neurological exam: Present: alert, oriented X3, CN II-XII intact Psychiatric exam: Present: normal affect, normal mood Skin exam: Present: warm, dry, intact, normal color. Absent: rash Course Vital Signs 02/28/18 02/28/18 02/28/18 20:24 21:20 23:51 Temperature 96.8 F L Pulse Rate 74 77 70 Respiratory 20 20 18 Rate Blood Pressure 99/54 97/59 102/53 O2 Sat by Pulse 99 95 93 L Oximetry Medical Decision Making - Medical Decision Making 37 year old male presents after syncopal episode. He was eating when I went into exam room, has no significant complaints at this time. EKG was reviewed and normal, normal CXR. Patient was giaven IV fluids and labs were all reviewed and normal. Patient informed of multiple reasons for syncopal episode, such as vasovagal, hypoglycemia, cardiac reasons. Discussed with normal sinus rhythm, and negative troponon and D-Dimer at this time we can treat patient and have him follow up outpatiently. Discussed follow up with PCP and cardiology. Discussed if it reoocurs and he has other symptoms to return. All questions answered, return parameters discussed. - Lab Data Result diagrams: 02/28/18 20:52 02/28/18 20:52 Lab Results 02/28/18 02/28/18 02/28/18 Range/Units 20:52 20:52 20:52 WBC 7.5 (3.8-10.6) k/uL RBC 5.11 (4.30-5.90) m/uL Hgb 16.3 (13.0-17.5) gm/dL Hct 45.4 (39.0-53.0) % MCV 88.8 (80.0-100.0) fL MCH 31.8 (25.0-35.0) pg MCHC 35.8 (31.0-37.0) g/dL RDW 12.6 (11.5-15.5) % Plt Count 239 (150-450) k/uL Neutrophils % 57 % Lymphocytes % 32 % Monocytes % 7 % Eosinophils % 1 % Basophils % 0 % Neutrophils # 4.2 (1.3-7.7) k/uL Lymphocytes # 2.4 (1.0-4.8) k/uL Monocytes # 0.6 (0-1.0) k/uL Eosinophils # 0.1 (0-0.7) k/uL Basophils # 0.0 (0-0.2) k/uL PT (9.0-12.0) sec INR (<1.2) APTT (22.0-30.0) sec D-Dimer (<0.60) mg/L FEU Sodium 141 (137-145) mmol/L Potassium 3.6 (3.5-5.1) mmol/L Chloride 103 (98-107) mmol/L Carbon Dioxide 24 (22-30) mmol/L Anion Gap 14 mmol/L BUN 15 (9-20) mg/dL Creatinine 0.80 (0.66-1.25) mg/dL Est GFR (CKD-EPI)AfAm >90 (>60 ml/min/1.73 sqM) Est GFR (CKD-EPI)NonAf >90 (>60 ml/min/1.73 sqM) Glucose 106 H (74-99) mg/dL Calcium 9.5 (8.4-10.2) mg/dL Magnesium 2.0 (1.6-2.3) mg/dL Total Bilirubin 0.6 (0.2-1.3) mg/dL AST 33 (17-59) U/L ALT 53 (21-72) U/L Alkaline Phosphatase 75 (38-126) U/L Total Creatine Kinase 198 H (55-170) U/L CK-MB (CK-2) 0.8 (0.0-2.4) ng/mL CK-MB (CK-2) Rel Index 0.4 Troponin I <0.012 (0.000-0.034) ng/mL Total Protein 7.3 (6.3-8.2) g/dL Albumin 4.0 (3.5-5.0) g/dL Urine Color Urine Appearance (Clear) Urine pH (5.0-8.0) Ur Specific [place] (1.001-1.035) Urine Protein (Negative) Urine Glucose (UA) (Negative) Urine Ketones (Negative) Urine Blood (Negative) Urine Nitrite (Negative) Urine Bilirubin (Negative) Urine Urobilinogen (<2.0) mg/dL Ur Leukocyte Esterase (Negative) Urine RBC (0-5) /hpf Urine WBC (0-5) /hpf Cellular Casts (0) /lpf Hyaline Casts (0-2) /lpf Granular Casts (0) /lpf Urine Mucus (None) /hpf 02/28/18 02/28/18 Range/Units 20:52 21:31 WBC (3.8-10.6) k/uL RBC (4.30-5.90) m/uL Hgb (13.0-17.5) gm/dL Hct (39.0-53.0) % MCV (80.0-100.0) fL MCH (25.0-35.0) pg MCHC (31.0-37.0) g/dL RDW (11.5-15.5) % Plt Count (150-450) k/uL Neutrophils % % Lymphocytes % % Monocytes % % Eosinophils % % Basophils % % Neutrophils # (1.3-7.7) k/uL Lymphocytes # (1.0-4.8) k/uL Monocytes # (0-1.0) k/uL Eosinophils # (0-0.7) k/uL Basophils # (0-0.2) k/uL PT 10.4 (9.0-12.0) sec INR 1.1 (<1.2) APTT 22.9 (22.0-30.0) sec D-Dimer 0.20 (<0.60) mg/L FEU Sodium (137-145) mmol/L Potassium (3.5-5.1) mmol/L Chloride (98-107) mmol/L Carbon Dioxide (22-30) mmol/L Anion Gap mmol/L BUN (9-20) mg/dL Creatinine (0.66-1.25) mg/dL Est GFR (CKD-EPI)AfAm (>60 ml/min/1.73 sqM) Est GFR (CKD-EPI)NonAf (>60 ml/min/1.73 sqM) Glucose (74-99) mg/dL Calcium (8.4-10.2) mg/dL Magnesium (1.6-2.3) mg/dL Total Bilirubin (0.2-1.3) mg/dL AST (17-59) U/L ALT (21-72) U/L Alkaline Phosphatase (38-126) U/L Total Creatine Kinase (55-170) U/L CK-MB (CK-2) (0.0-2.4) ng/mL CK-MB (CK-2) Rel Index Troponin I (0.000-0.034) ng/mL Total Protein (6.3-8.2) g/dL Albumin (3.5-5.0) g/dL Urine Color Yellow Urine Appearance Clear (Clear) Urine pH 6.0 (5.0-8.0) Ur Specific [place] 1.029 (1.001-1.035) Urine Protein 1+ H (Negative) Urine Glucose (UA) Negative (Negative) Urine Ketones 1+ H (Negative) Urine Blood Negative (Negative) Urine Nitrite Negative (Negative) Urine Bilirubin Negative (Negative) Urine Urobilinogen 2.0 (<2.0) mg/dL Ur Leukocyte Esterase Negative (Negative) Urine RBC 1 (0-5) /hpf Urine WBC 3 (0-5) /hpf Cellular Casts 4 (0) /lpf Hyaline Casts 4 H (0-2) /lpf Granular Casts 22 (0) /lpf Urine Mucus Many H (None) /hpf 02/28/18 21:48 EKG shows normal sinus rhythm. Normal EKG. Ventricular rate 69 bpm. NJ interval 140 ms. QRS duration 92 ms. QTC is 404/432 ms. - Radiology Data Radiology results: report reviewed Normal CXR, no acute process noted. Disposition Clinical Impression: Syncope Disposition: HOME SELF-CARE Condition: Good Instructions: Syncope (ED) Additional Instructions: Patient advised to follow-up with primary care provider. Return to emergency department if any alarming signs or symptoms occur. Remain hydrated. Referrals: Arthur Palomino MD [Primary Care Provider] - 1-2 days Elvira Valdes MD [STAFF PHYSICIAN] - 1-2 days Amilcar Germain MD [STAFF PHYSICIAN] - 1-2 days Time of Disposition: 00:18
[2018-02-28 21:52] LABS: Creatine Kinase MB 0.8 ng/mL (0.0-2.4); Troponin I <0.012 ng/mL (0.000-0.034)
--- NOTE | 2018-02-28 22:58 | XR ---
EXAMINATION TYPE: XR chest 2V DATE OF EXAM: 02/28/2018 COMPARISON: 06/21/2017 HISTORY: Syncope TECHNIQUE: Frontal and lateral views of the chest are obtained. FINDINGS: There is no heart failure nor confluent pneumonic infiltrate. I see no definite pleural ef fusion. Bony thorax is intact. There are chest leads. There is suboptimal inspiration on the lateral view. Bony thorax appears intact. IMPRESSION: No active cardiopulmonary disease. No change.
[2018-02-28 23:51] VITALS: BP 102/53; PULSE 70; RESP 18
== END 2018-03-01 00:33 | disposition home or self-care (01) ==
LOC: EC 20:22
DX: R55 Syncope and collapse (principal); R42 Dizziness and giddiness; R06.02 Shortness of breath; H90.3 Sensorineural hearing loss, bilateral; F32.9 Major depressive disorder, single episode, unspecified; F17.200 Nicotine dependence, unspecified, uncomplicated; Z79.899 Other long term (current) drug therapy
CPT/HCPCS: 36415; 71046; 80053; 81001; 82550; 82553; 83735; 84484; 85025; 85379; 85610; 85730; 93005; 96360; 99285

== ENCOUNTER 2018-07-17 15:17 | Emergency (ER) | payer OTHER ==
[2018-07-17 15:38] VITALS: BP 150/83; PULSE 110; RESP 22; TEMP 98.7
[2018-07-17] MEDS ORDERED: LORazepam 2 MG/ML INJ IV STA (16:00)
--- NOTE | 2018-07-17 16:07 | ED ---
Anxiety HPI - General Chief Complaint: Anxiety Stated Complaint: poss overdose,Anxiety Time Seen by Provider: 07/17/18 15:25 Source: patient, RN notes reviewed, old records reviewed Mode of arrival: ambulatory - History of Present Illness Initial Comments: Patient is a 38 year old male presents via EMS for severe anxiety and emotional breakdown. Patient was arrested by [facility], and was being transferred due to warrants at [facility]. Patient was in the back of the advertising copywriter car, startded to have a panic attack and thrashing in the back of the advertising copywriter car. They pulled over and called EMS. Patient has a recent history of stressors with his girlfriend, loosing a house, loosing his job. Patient was at a anglican function, apparently acting strange and the police were contacted. No history of bipolar disorder. Denies suicidal thoughts. - Related Data Home Medications: Home Medications Medication Instructions Recorded Confirmed Naproxen Sodium [Aleve] 440 mg PO BID PRN 01/12/17 04/16/17 Ascorbic Acid [Vitamin C] 500 mg PO DAILY 01/31/17 04/16/17 Cholecalciferol [Vitamin D3] 1,000 unit PO DAILY 04/16/17 04/16/17 Mirtazapine [Remeron] 30 mg PO HS 04/16/17 04/16/17 Venlafaxine HCl ER [Effexor Xr] 225 mg PO DAILY 04/16/17 04/16/17 Previous Rx's Medication Instructions Recorded Nicotine 14Mg/24Hr Patch [Habitrol] 1 patch TRANSDERM DAILY 7 Days 02/06/17 patch Amoxicillin 500 mg PO Q8H #30 capsule 06/21/17 Allergies/Adverse Reactions: Allergies Allergy/AdvReac Type Severity Reaction Status Date / Time No Known Allergies Allergy Verified 07/17/18 15:38 Review of Systems ROS Statement: Those systems with pertinent positive or pertinent negative responses have been documented in the HPI. ROS Other: All systems not noted in ROS Statement are negative. Past Medical History Past Medical History: No Reported History Additional Past Medical History / Comment(s): Congenital Bilat Hearing loss. Pt states he did have bilat hearing aids, however "they broke and I don't have them anymore.". Turetts History of Any Multi-Drug Resistant Organisms: None Reported Past Surgical History: No Surgical Hx Reported, Appendectomy Additional Past Surgical History / Comment(s): bilateral tube placed iin ears. Past Anesthesia/Blood Transfusion Reactions: No Reported Reaction Past Psychological History: Depression Smoking Status: Current every day smoker Past Alcohol Use History: Heavy Past Drug Use History: Marijuana - Past Family History Father Family Medical History: Myocardial Infarction ([place]) General Exam - General Exam Comments Initial Comments: This is a 38 year old male, anxious, hyperactive. Limitations: no limitations General appearance: alert, in no apparent distress Head exam: Present: atraumatic, normocephalic, normal inspection Eye exam: Present: normal appearance, PERRL, EOMI. Absent: scleral icterus, conjunctival injection, periorbital swelling ENT exam: Present: normal exam, mucous membranes moist Neck exam: Present: normal inspection. Absent: tenderness, meningismus, lymphadenopathy Respiratory exam: Present: normal lung sounds bilaterally. Absent: respiratory distress, wheezes, rales, rhonchi, stridor Cardiovascular Exam: Present: regular rate, normal rhythm, normal heart sounds. Absent: systolic murmur, diastolic murmur, rubs, gallop, clicks Neurological exam: Present: alert, oriented X3, CN II-XII intact Psychiatric exam: Present: normal mood, agitated, anxious, manic. Absent: normal affect Skin exam: Present: warm, dry, intact, normal color. Absent: rash Course Vital Signs 07/17/18 15:32 Temperature 98.7 F Pulse Rate 110 H Respiratory 22 Rate Blood Pressure 150/83 O2 Sat by Pulse 98 Oximetry Medical Decision Making - Medical Decision Making 38 year old male presents after having panic attack in police vehicle while being arrested. Patient has manic tendencies and has pressured speech. He states he has been through alot of emotional stress with girlfriend, loosing his house, and the arrest brought him over the edge. He was arrested to due failed child support. He was apparently at a anglican function and acting abnormal so police were contacted. Patient appears manic. IV was established and was attempting to give patient ativan. Before meds were given, patient reported he had to go, pulled IV and left. While in ED, police did not arrive and have not attemptoed to contact him for persueing the arrest. Disposition Clinical Impression: Panic attack Disposition: Left Against Medical Advice Condition: Stable Instructions: Generalized Anxiety Disorder (ED) Referrals: Arthur Palomino MD [Primary Care Provider] - 1-2 days Time of Disposition: 10:38
[2018-07-17] MEDS ORDERED: SODIUM CHLORIDE 0.9% 1,000 ML IV ONE (16:09)
== END 2018-07-17 16:30 | disposition left against medical advice (07) ==
LOC: EC 15:17
DX: F41.0 Panic disorder [episodic paroxysmal anxiety] (principal); F32.9 Major depressive disorder, single episode, unspecified; R45.1 Restlessness and agitation; H90.3 Sensorineural hearing loss, bilateral; F17.200 Nicotine dependence, unspecified, uncomplicated; Z79.899 Other long term (current) drug therapy; Z96.20 Presence of otological and audiological implant, unspecified
CPT/HCPCS: 99284

== ENCOUNTER 2018-12-02 21:32 | Emergency (ER) | payer OTHER ==
--- NOTE | 2018-12-02 22:16 | ED ---
General Adult HPI - General Chief complaint: Overdose Stated complaint: overdose Source: patient, police, EMS Mode of arrival: EMS Limitations: physical limitation - Related Data Home Medications Medication Instructions Recorded Confirmed No Known Home Medications 12/02/18 12/02/18 Allergies Allergy/AdvReac Type Severity Reaction Status Date / Time No Known Allergies Allergy Verified 12/02/18 22:10 Review of Systems ROS Statement: Those systems with pertinent positive or pertinent negative responses have been documented in the HPI. ROS Other: All systems not noted in ROS Statement are negative. Past Medical History Past Medical History: No Reported History Additional Past Medical History / Comment(s): Congenital Bilat Hearing loss. Pt states he did have bilat hearing aids, however "they broke and I don't have them anymore.". Turetts History of Any Multi-Drug Resistant Organisms: None Reported Past Surgical History: Appendectomy Additional Past Surgical History / Comment(s): bilateral tube placed iin ears. Past Anesthesia/Blood Transfusion Reactions: No Reported Reaction Past Psychological History: Anxiety, Depression Smoking Status: Current every day smoker Past Alcohol Use History: Heavy Past Drug Use History: Heroin, Marijuana - Past Family History Father Family Medical History: Myocardial Infarction ([place]) General Exam Limitations: physical limitation Course Vital Signs 12/02/18 12/02/18 21:34 22:15 Temperature 98.1 F 98.6 F Pulse Rate 90 88 Respiratory 18 18 Rate Blood Pressure 102/70 112/71 O2 Sat by Pulse 99 94 L Oximetry Medical Decision Making - Medical Decision Making Dictation was produced using [employer] dictation software. please excuse any grammatical, word or spelling errors. Chief Complaint: 38-year-old male presents after heroin overdose. History of Present Illness: 38-year-old male. He was found unresponsive agonal respiration with needle. Patient is by EMS. He is given Narcan with improvement of mentation. Patient has no other complaints at this time. No suicidal or homicidal ideation. The ROS documented in this emergency department record has been reviewed and confirmed by me. Those systems with pertinent positive or negative responses have been documented in the HPI. All other systems are other negative and/or noncontributory. PHYSICAL EXAM: General Impression: Alert and oriented x3, not in acute distress HEENT: Normocephalic atraumatic, extra-ocular movements intact, pupils equal and reactive to light bilaterally, mucous membranes moist. Cardiovascular: Heart regular rate and rhythm, S1&S2 audible, no murmurs, rubs or gallops Chest: Lungs clear to auscultation bilaterally, no rhonchi, no wheeze, no rales Abdomen: Bowel sounds present, abdomen soft, non-tender, non-distended, no organomegaly Musculoskeletal: Pulses present and equal in all extremities, no peripheral edema Motor: Power 5/5 bilaterally, no focal deficits noted Neurological: CN II-XII grossly intact, no focal motor or sensory deficits noted Skin: Intact with no visualized rashes Psych: Normal affect and mood ED course: 38-year-old male presents after heroin overdose. Vital signs unremarkable. Patient allegedly receiving Narcan approximately 9 PM. Patient has no complaints at this time. No signs of respiratory distress. Patient is completely alert and oriented 3. Not suicidal or homicidal. Patient observed in the emergency department for several hours with out any, occasions. Patient stable clinically. No signs of respiratory distress or somnolence. Patient clear for discharge. Disposition Clinical Impression: Overdose Disposition: HOME SELF-CARE Condition: Good Instructions: Safe Use of Narcotics (ED) Is patient prescribed a controlled substance at d/c from ED?: No Referrals: Arthur Palomino MD [Primary Care Provider] - 1-2 days Time of Disposition: 22:54
[2018-12-02 22:20] VITALS: TEMP 98.6
[2018-12-03 00:35] VITALS: BP 112/68; PULSE 98; RESP 18
== END 2018-12-03 00:30 | disposition home or self-care (01) ==
LOC: EC 21:32
DX: T40.1X1A Poisoning by heroin, accidental (unintentional), initial encounter (principal); H90.3 Sensorineural hearing loss, bilateral; F17.200 Nicotine dependence, unspecified, uncomplicated; Z90.49 Acquired absence of other specified parts of digestive tract; Z96.22 Myringotomy tube(s) status
CPT/HCPCS: 99284

== ENCOUNTER 2018-12-04 15:02 | Inpatient (IN) | payer MEDICAID, OTHER ==
[2018-12-04] MEDS ORDERED: SODIUM CHLORIDE 0.9% 1,000 ML IV STA (15:19)
[2018-12-04] MEDS ORDERED: LORazepam 2 MG/ML INJ IV STA ×2 (15:31→15:54)
--- NOTE | 2018-12-04 15:36 | ED ---
General Adult HPI - General Source: police, EMS, RN notes reviewed, old records reviewed Mode of arrival: EMS Limitations: no limitations <Roge Younger - Last Filed: 12/04/18 16:57> <Julius Goss - Last Filed: 12/04/18 22:38> - General Chief complaint: Psychiatric Symptoms Stated complaint: suicidal Time Seen by Provider: 12/04/18 15:19 - History of Present Illness Initial comments: 38-year-old male presents with suicide attempt. Patient brought in by police after being found with a belt around his neck and suicide attempt. Patient also admits to ingesting 60 Effexor tablets approximately one half hour prior to arrival. Patient is noncompliant with history. He keeps stating that he will successfully complete suicide either today or as soon as he was released from this hospital. His had multiple suicide attempts in the past. Denies any other ingestion other than his Effexor. He states He will "blow his brains out" (Roge Younger) - Related Data Home Medications Medication Instructions Recorded Confirmed No Known Home Medications 12/02/18 12/04/18 Allergies Allergy/AdvReac Type Severity Reaction Status Date / Time No Known Allergies Allergy Verified 12/04/18 15:46 Review of Systems ROS Other: All systems not noted in ROS Statement are negative. <Roge Younger - Last Filed: 12/04/18 16:57> ROS Other: All systems not noted in ROS Statement are negative. <Julius Goss - Last Filed: 12/04/18 22:38> ROS Statement: Those systems with pertinent positive or pertinent negative responses have been documented in the HPI. Past Medical History Past Medical History: No Reported History Additional Past Medical History / Comment(s): Congenital Bilat Hearing loss. Pt states he did have bilat hearing aids, however "they broke and I don't have them anymore.". Turetts History of Any Multi-Drug Resistant Organisms: None Reported Past Surgical History: Appendectomy Additional Past Surgical History / Comment(s): bilateral tube placed iin ears. Past Anesthesia/Blood Transfusion Reactions: No Reported Reaction Past Psychological History: Anxiety, Depression Smoking Status: Current every day smoker Past Alcohol Use History: Heavy Past Drug Use History: Heroin, Marijuana - Past Family History Father Family Medical History: Myocardial Infarction ([place]) <Roge Younger - Last Filed: 12/04/18 16:57> General Exam Limitations: no limitations General appearance: alert, appears intoxicated Head exam: Present: atraumatic, normocephalic Eye exam: Present: normal appearance, PERRL ENT exam: Present: mucous membranes dry Neck exam: Present: other (No midline cervical tenderness, no carotid bruit, there is erythema on the anterior neck, no ligature itz) Respiratory exam: Present: normal lung sounds bilaterally. Absent: respiratory distress, wheezes Cardiovascular Exam: Present: normal rhythm, tachycardia GI/Abdominal exam: Present: soft. Absent: distended, tenderness, guarding Extremities exam: Present: normal inspection, normal capillary refill Neurological exam: Present: alert, oriented X3. Absent: motor sensory deficit Psychiatric exam: Present: depressed, agitated, suicidal ideation Skin exam: Present: warm, dry, intact. Absent: cyanosis, diaphoretic <Roge Younger - Last Filed: 12/04/18 16:57> General appearance: alert, in no apparent distress Head exam: Present: atraumatic, normocephalic, normal inspection Eye exam: Present: normal appearance, PERRL, EOMI. Absent: scleral icterus, conjunctival injection, periorbital swelling ENT exam: Present: normal exam, mucous membranes moist Neck exam: Present: normal inspection. Absent: tenderness, meningismus, lymphadenopathy Respiratory exam: Present: normal lung sounds bilaterally. Absent: respiratory distress, wheezes, rales, rhonchi, stridor Cardiovascular Exam: Present: regular rate, normal rhythm, normal heart sounds. Absent: systolic murmur, diastolic murmur, rubs, gallop, clicks GI/Abdominal exam: Present: soft, normal bowel sounds. Absent: distended, tenderness, guarding, rebound, rigid Extremities exam: Present: normal inspection, full ROM, normal capillary refill. Absent: tenderness, pedal edema, joint swelling, calf tenderness Back exam: Present: normal inspection Neurological exam: Present: alert, oriented X3, CN II-XII intact Psychiatric exam: Present: normal affect, normal mood Skin exam: Present: warm, dry, intact, normal color. Absent: rash <Julius Goss - Last Filed: 12/04/18 22:38> Course <Roge Younger - Last Filed: 12/04/18 16:57> <Julius Goss - Last Filed: 12/04/18 22:38> Vital Signs 12/04/18 12/04/18 12/04/18 15:08 15:45 16:00 Temperature 98.6 F Pulse Rate 110 H 101 H 90 Respiratory 16 19 18 Rate Blood Pressure 143/101 142/97 141/87 O2 Sat by Pulse 100 98 97 Oximetry - Reevaluation(s) Reevaluation #1: 12/04/18 1545 Case is discussed with poison control. Recommend IV fluids, close monitoring, benzodiazepines as needed, repeat EKG in 4-6 hours to observe for QRS widening. Patient requires 6 hours of observation before patient can be medically cleared. 12/04/18 16:57 (Roge Younger) Reevaluation #2: 12/04/[address] angiography regarding attempted hanging. Patient's care is signed out at shift change awaiting complete workup and psychiatric evaluation. (Roge Younger) Reevaluation #3: 12/04/18 18:58 Patient resting comfortably, medical clear for psychiatric evaluation (Julius Goss) Reevaluation #4: 12/04/18 22:37 Patient again made medically clear for psychiatric admission after being a runner from the hospital just prior to us finding him about an hour later ( Julius Goss) EKG Findings - EKG Comments: EKG Findings:: EKG EKG: Sinus tachycardia rate 112, MD interval 132, QRS duration 84, QTC 472, no ST segment changes, no arrhythmia, normal intervals, normal QRS duration. <Roge Younger - Last Filed: 12/04/18 16:57> - EKG Comments: EKG Findings:: EKG repeat shows normal sinus rhythm rate of 84, MD 136, QRS 94, QTc 477 <Julius Goss - Last Filed: 12/04/18 22:38> Medical Decision Making - Lab Data Result diagrams: 12/04/18 15:36 12/04/18 15:36 <Roge Younger - Last Filed: 12/04/18 16:57> - Lab Data Result diagrams: 12/04/18 15:36 12/04/18 15:36 - Radiology Data Radiology results: report reviewed (CTA chest is negative for acute disease), image reviewed <Julius Goss - Last Filed: 12/04/18 22:38> - Medical Decision Making 38 male the ER patient will be admitted for psychiatric evaluation and treatment secondary suicide attempt today (Julius Goss) - Lab Data Lab Results 12/04/18 12/04/18 12/04/18 Range/Units 15:06 15:36 15:36 WBC 9.2 (3.8-10.6) k/uL RBC 5.37 (4.30-5.90) m/uL Hgb 17.2 (13.0-17.5) gm/dL Hct 48.5 (39.0-53.0) % MCV 90.4 (80.0-100.0) fL MCH 32.1 (25.0-35.0) pg MCHC 35.5 (31.0-37.0) g/dL RDW 12.9 (11.5-15.5) % Plt Count 281 (150-450) k/uL Neutrophils % 66 % Lymphocytes % 21 % Monocytes % 8 % Eosinophils % 2 % Basophils % 1 % Neutrophils # 6.0 (1.3-7.7) k/uL Lymphocytes # 1.9 (1.0-4.8) k/uL Monocytes # 0.7 (0-1.0) k/uL Eosinophils # 0.1 (0-0.7) k/uL Basophils # 0.0 (0-0.2) k/uL PT (9.0-12.0) sec INR (<1.2) Sodium 138 (137-145) mmol/L Potassium 3.9 (3.5-5.1) mmol/L Chloride 102 (98-107) mmol/L Carbon Dioxide 26 (22-30) mmol/L Anion Gap 10 mmol/L BUN 15 (9-20) mg/dL Creatinine 0.94 (0.66-1.25) mg/dL Est GFR (CKD-EPI)AfAm >90 (>60 ml/min/1.73 sqM) Est GFR (CKD-EPI)NonAf >90 (>60 ml/min/1.73 sqM) Glucose 71 L (74-99) mg/dL Plasma Lactic Acid Macho 1.4 (0.7-2.0) mmol/L Calcium 10.1 (8.4-10.2) mg/dL Total Bilirubin 1.5 H (0.2-1.3) mg/dL AST 61 H (17-59) U/L ALT 68 (21-72) U/L Alkaline Phosphatase 83 (38-126) U/L Total Protein 8.4 H (6.3-8.2) g/dL Albumin 4.6 (3.5-5.0) g/dL Salicylates <1.0 mg/dL Urine Opiates Screen (NotDetected) Ur Oxycodone Screen (NotDetected) Urine Methadone Screen (NotDetected) Ur Propoxyphene Screen (NotDetected) Acetaminophen <10.0 ug/mL Ur Barbiturates Screen (NotDetected) U Tricyclic Antidepress (NotDetected) Ur Phencyclidine Scrn (NotDetected) Ur Amphetamines Screen (NotDetected) U Methamphetamines Scrn (NotDetected) U Benzodiazepines Scrn (NotDetected) Urine Cocaine Screen (NotDetected) U Marijuana (THC) Screen (NotDetected) Serum Alcohol <10 mg/dL 12/04/18 12/04/18 Range/Units 15:36 18:25 WBC (3.8-10.6) k/uL RBC (4.30-5.90) m/uL Hgb (13.0-17.5) gm/dL Hct (39.0-53.0) % MCV (80.0-100.0) fL MCH (25.0-35.0) pg MCHC (31.0-37.0) g/dL RDW (11.5-15.5) % Plt Count (150-450) k/uL Neutrophils % % Lymphocytes % % Monocytes % % Eosinophils % % Basophils % % Neutrophils # (1.3-7.7) k/uL Lymphocytes # (1.0-4.8) k/uL Monocytes # (0-1.0) k/uL Eosinophils # (0-0.7) k/uL Basophils # (0-0.2) k/uL PT 12.6 H (9.0-12.0) sec INR 1.2 H (<1.2) Sodium (137-145) mmol/L Potassium (3.5-5.1) mmol/L Chloride (98-107) mmol/L Carbon Dioxide (22-30) mmol/L Anion Gap mmol/L BUN (9-20) mg/dL Creatinine (0.66-1.25) mg/dL Est GFR (CKD-EPI)AfAm (>60 ml/min/1.73 sqM) Est GFR (CKD-EPI)NonAf (>60 ml/min/1.73 sqM) Glucose (74-99) mg/dL Plasma Lactic Acid Macho (0.7-2.0) mmol/L Calcium (8.4-10.2) mg/dL Total Bilirubin (0.2-1.3) mg/dL AST (17-59) U/L ALT (21-72) U/L Alkaline Phosphatase (38-126) U/L Total Protein (6.3-8.2) g/dL Albumin (3.5-5.0) g/dL Salicylates mg/dL Urine Opiates Screen Not Detected (NotDetected) Ur Oxycodone Screen Not Detected (NotDetected) Urine Methadone Screen Not Detected (NotDetected) Ur Propoxyphene Screen Not Detected (NotDetected) Acetaminophen ug/mL Ur Barbiturates Screen Not Detected (NotDetected) U Tricyclic Antidepress Not Detected (NotDetected) Ur Phencyclidine Scrn Not Detected (NotDetected) Ur Amphetamines Screen Detected H (NotDetected) U Methamphetamines Scrn Not Detected (NotDetected) U Benzodiazepines Scrn Detected H (NotDetected) Urine Cocaine Screen Not Detected (NotDetected) U Marijuana (THC) Screen Detected H (NotDetected) Serum Alcohol mg/dL Critical Care Time Critical Care Time: Yes Total Critical Care Time: 31 <Julius Goss - Last Filed: 12/04/18 22:38> Disposition <Roge Younger - Last Filed: 12/04/18 16:57> Is patient prescribed a controlled substance at d/c from ED?: No <Julius Goss - Last Filed: 12/04/18 22:38> Clinical Impression: Borderline personality disorder, Overdose, Substance abuse, Attempted suicide, Suicidal ideation Disposition: TRANSFER TO PSYCH HOSP/UNIT Condition: Fair Referrals: Arthur Palomino MD [Primary Care Provider] - 1-2 days
--- NOTE | 2018-12-04 15:47 | XR ---
EXAMINATION TYPE: XR chest 1V DATE OF EXAM: 12/04/2018 COMPARISON: 03/10/2018 HISTORY: Trauma. Neck and chest pain. TECHNIQUE: Single frontal view of the chest is obtained. FINDINGS: There is no focal air space opacity, pleural effusion, or pneumothorax seen. The cardiac silhouette size is within normal limits. The osseous structures are intact. IMPRESSION: No acute cardiopulmonary process.
[2018-12-04 15:49] LABS: Basophils % (A) 1 %; Eosinophils # (A) 0.1 k/uL (0-0.7); Eosinophils % (A) 2 %; HCT 48.5 % (39.0-53.0); HGB 17.2 gm/dL (13.0-17.5); Lymphocytes # (A) 1.9 k/uL (1.0-4.8); Lymphocytes % (A) 21 %; MCH 32.1 pg (25.0-35.0); MCHC 35.5 g/dL (31.0-37.0); MCV 90.4 fL (80.0-100.0); Mean Platelet Volume 6.1; Monocytes # (A) 0.7 k/uL (0-1.0); Monocytes % (A) 8 %; Neutrophils % (A) 66 %; Platelet Count 281 k/uL (150-450); RBC 5.37 m/uL (4.30-5.90); RDW 12.9 % (11.5-15.5); WBC 9.2 k/uL (3.8-10.6)
[2018-12-04 15:53] LABS: INR 1.2 (<1.2); Prothrombin Time 12.6 sec (9.0-12.0)
[2018-12-04 16:02] LABS: ALT 68 U/L (21-72); AST 61 U/L (17-59); Acetaminophen <10.0 ug/mL; Albumin 4.6 g/dL (3.5-5.0); Alcohol <10 mg/dL; Alkaline Phosphatase 83 U/L (38-126); Anion Gap 10 mmol/L; Blood Urea Nitrogen 15 mg/dL (9-20); Calcium 10.1 mg/dL (8.4-10.2); Carbon Dioxide 26 mmol/L (22-30); Chloride 102 mmol/L (98-107); Glucose 71 mg/dL (74-99); Potassium 3.9 mmol/L (3.5-5.1); Salicylate <1.0 mg/dL; Sodium 138 mmol/L (137-145); Total Bilirubin 1.5 mg/dL (0.2-1.3); Total Protein 8.4 g/dL (6.3-8.2)
--- NOTE | 2018-12-04 17:33 | CT ---
EXAMINATION TYPE: CT angio neck DATE OF EXAM: 12/04/2018 COMPARISON: None HISTORY: Strangulation CT DLP: 430.2 mGycm CONTRAST: Patient injected with 65 mL of Isovue 370. TECHNIQUE: Axial images at 3 mm thick sections. Reconstructed images in the coronal plane and sagitt al plane are reviewed. FINDINGS: Limited CT sections are obtained the lung apices. There is a patchy infiltrate within the anterior right apex could be atelectasis pulmonary vascular markings appear normal. There is a three- vessel arch. The common carotid arteries appear normal. Vertebral arteries appear normal and codomina nt. Carotid bifurcations are normal. Vertebral basilar arteries are normal. Distal internal carotid a rteries are patent at the level of the skull base. Vocal cord level appear symmetrical. Subglottic airway is normal. The hyoid and laryngeal cartilage a ppears intact. No fractures are evident. Beam hardening artifact is present to the mandible. No acute mandibular fractures are evident. Soft tissues are unremarkable. Cervical spine as visualized is nor mal. Alignment is normal. Mild degenerative disc changes are present diffusely through the cervical s pine. Three-D [id number] imaging is performed. The carotid bifurcations appear unremarkable. Vertebral arteries appear unremarkable. IMPRESSIONS: 1. No suspicious acute abnormality within the neck is evident. 2. No acute fractures identified. No vascular compression or extravasation is evident on these images . 3. Patchy infiltrate at the right apex could be some small atelectasis.
[2018-12-04] MEDS: SODIUM CHLORIDE 0.9% 1,000 ML IV SCH (18:27)
[2018-12-04 19:00] LABS: Amphetamine Screen,Urine Detected (NotDetected); Barbiturate Screen,Urine Not Detected (NotDetected); Benzodiazepines Screen,Urine Detected (NotDetected); Cocaine Screen,Urine Not Detected (NotDetected); Methadone Screen, Urine Not Detected (NotDetected); Opiate Screen,Urine Not Detected (NotDetected); Oxycodone Screen, Urine Not Detected (NotDetected); Phencyclidine Screen,Urine Not Detected (NotDetected); Tricyclic Antidepressant,Urine Not Detected (NotDetected); Urn Cannabinoid Scrn Detected (NotDetected)
[2018-12-04] MEDS ORDERED: MAG HYDROX/AL HYDROX/SIMETH 30 ML CUP PO PRN (23:26)
[2018-12-04] MEDS ORDERED: MAGNESIUM HYDROXIDE 2,400 MG/10 ML CUP PO PRN (23:26)
[2018-12-04] MEDS ORDERED: ACETAMINOPHEN TAB 325 MG TAB PO PRN (23:26)
[2018-12-04] MEDS ORDERED: ZIPRASIDONE 20 MG VIAL IM PRN (23:26)
[2018-12-04] MEDS ORDERED: LORazepam 2 MG/ML INJ IM PRN (23:28)
--- NOTE | 2018-12-05 06:54 | P.PN ---
Progress Note - Text Progress Note Date: 12/05/18 notified to see this patient by RN, patient was sleeping and medicated when i was notified. this morning I attempted to evaluated the patient , however, he refused to be seen at this time. One of the sound physicians will try and evaluated the patient again at a later time today , when the patient is ready
[2018-12-05] MEDS: SODIUM CHLORIDE 0.9% 1,000 ML IV SCH (07:46)
[2018-12-05] MEDS: NICOTINE 21MG/24HR PATCH TRANSDERM SCH (08:08)
--- NOTE | 2018-12-05 16:38 | P.HP ---
Psychiatric H&P - . H&P Date: 12/05/18 History & Physical: Allergies Allergy/AdvReac Type Severity Reaction Status Date / Time No Known Allergies Allergy Verified 12/04/18 15:46 Vital Signs Temp 98.2 F 12/05/18 06:54 Pulse 69 12/05/18 06:54 Resp 18 12/05/18 06:54 BP 110/57 12/05/18 06:54 Pulse Ox 97 12/04/18 16:00 Intake & Output 12/04/18 12/05/18 12/05/18 18:59 06:59 18:59 Weight 79.379 kg 77.111 kg Laboratory Last Values WBC 9.2 k/uL (3.8-10.6) 12/04/18 15:36 RBC 5.37 m/uL (4.30-5.90) 12/04/18 15:36 Hgb 17.2 gm/dL (13.0-17.5) 12/04/18 15:36 Hct 48.5 % (39.0-53.0) 12/04/18 15:36 MCV 90.4 fL (80.0-100.0) 12/04/18 15:36 MCH 32.1 pg (25.0-35.0) 12/04/18 15:36 MCHC 35.5 g/dL (31.0-37.0) 12/04/18 15:36 RDW 12.9 % (11.5-15.5) 12/04/18 15:36 Plt Count 281 k/uL (150-450) 12/04/18 15:36 Neutrophils % 66 % 12/04/18 15:36 Lymphocytes % 21 % 12/04/18 15:36 Monocytes % 8 % 12/04/18 15:36 Eosinophils % 2 % 12/04/18 15:36 Basophils % 1 % 12/04/18 15:36 Neutrophils # 6.0 k/uL (1.3-7.7) 12/04/18 15:36 Lymphocytes # 1.9 k/uL (1.0-4.8) 12/04/18 15:36 Monocytes # 0.7 k/uL (0-1.0) 12/04/18 15:36 Eosinophils # 0.1 k/uL (0-0.7) 12/04/18 15:36 Basophils # 0.0 k/uL (0-0.2) 12/04/18 15:36 PT 12.6 sec (9.0-12.0) H 12/04/18 15:36 INR 1.2 (<1.2) H 12/04/18 15:36 Sodium 138 mmol/L (137-145) 12/04/18 15:36 Potassium 3.9 mmol/L (3.5-5.1) 12/04/18 15:36 Chloride 102 mmol/L (98-107) 12/04/18 15:36 Carbon Dioxide 26 mmol/L (22-30) 12/04/18 15:36 Anion Gap 10 mmol/L 12/04/18 15:36 BUN 15 mg/dL (9-20) 12/04/18 15:36 Creatinine 0.94 mg/dL (0.66-1.25) 12/04/18 15:36 Est GFR (CKD-EPI)AfAm >90 (>60 ml/min/1.73 sqM) 12/04/18 15:36 Est GFR (CKD-EPI)NonAf >90 (>60 ml/min/1.73 sqM) 12/04/18 15:36 Glucose 71 mg/dL (74-99) L 12/04/18 15:36 Plasma Lactic Acid Macho 1.4 mmol/L (0.7-2.0) 12/04/18 15:06 Calcium 10.1 mg/dL (8.4-10.2) 12/04/18 15:36 Total Bilirubin 1.5 mg/dL (0.2-1.3) H 12/04/18 15:36 AST 61 U/L (17-59) H 12/04/18 15:36 ALT 68 U/L (21-72) 12/04/18 15:36 Alkaline Phosphatase 83 U/L (38-126) 12/04/18 15:36 Total Protein 8.4 g/dL (6.3-8.2) H 12/04/18 15:36 Albumin 4.6 g/dL (3.5-5.0) 12/04/18 15:36 TSH 1.130 mIU/L (0.465-4.680) 12/04/18 15:36 Salicylates <1.0 mg/dL 12/04/18 15:36 Urine Opiates Screen Not Detected (NotDetected) 12/04/18 18:25 Ur Oxycodone Screen Not Detected (NotDetected) 12/04/18 18:25 Urine Methadone Screen Not Detected (NotDetected) 12/04/18 18:25 Ur Propoxyphene Screen Not Detected (NotDetected) 12/04/18 18:25 Acetaminophen <10.0 ug/mL 12/04/18 15:36 Ur Barbiturates Screen Not Detected (NotDetected) 12/04/18 18:25 U Tricyclic Antidepress Not Detected (NotDetected) 12/04/18 18:25 Ur Phencyclidine Scrn Not Detected (NotDetected) 12/04/18 18:25 Ur Amphetamines Screen Detected (NotDetected) H 12/04/18 18:25 U Methamphetamines Scrn Not Detected (NotDetected) 12/04/18 18:25 U Benzodiazepines Scrn Detected (NotDetected) H 12/04/18 18:25 Urine Cocaine Screen Not Detected (NotDetected) 12/04/18 18:25 U Marijuana (THC) Screen Detected (NotDetected) H 12/04/18 18:25 Serum Alcohol <10 mg/dL 12/04/18 15:36 12/05/18 16:29 IDENTIFYING DATA: 38-year-old single male patient HPI: Patient admitted to the inpatient psychiatric unit [facility] on involuntary basis area petition was done by deputy soliman verbalizing "I: In the [facility] on [address]. Carlos himself with a belt from the bathroom door. Moreno's father received a text from Moreno saying he was going to commit suicide." Patient reports that he was under the influence of meth. He says he used meth the day before yesterday. Says he normally does not use that in the last time he used it he ended up in the hospital as well. Regarding his mood lately he says it's been doing alright. He says the holidays are usually attempts time for him. He states that he did take an overdose of Effexor which was 2 months worth but one bottle had part of it gone. He also tried to hang himself and he states that cut him down. He says that and his dad came to where he was because he had sent his dad a suicide note. He also states that he had gone in a fight with his girlfriend the day before. He does admit to feeling anxiety sometimes. PAST PSYCHIATRIC HISTORY: Patient states this is his fourth inpatient admission here since 2007. Says he supposed to start [facility] treatment. He's been on Effexor in the past which works for him but he doesn't like taking it because of the sexual side effects. He was also on Celexa and Wellbutrin in the past which she had sexual side effects with. He doesn't history of suicide attempts , always under the influence. PMH: Denies ALLERGIES: No known ALLERGIES per chart MEDICATIONS: Tylenol when necessary, Maalox when necessary, Ativan when necessary, milk of magnesia when necessary, Geodon when necessary. Patient states he is on no current medications otherwise. 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 He did have 6 months of sobriety before used meth. Heroin is typically his drug of choice. He describes himself self as a social drinker. He does have a history of being on Vivitrol. FAMILY PSYCHIATRIC HISTORY: None known at this time. FAMILY CHEMICAL DEPENDENCY HISTORY: None known at this time. SOCIAL HISTORY: Lives with his girlfriend, relays that they just broke up. He has one daughter who is 14 years old. 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 His never been . MENTAL STATUS EXAM: He is alert and cooperative with the interview. His speech is fluent, not rapid or pressured. He does not show any agitation. He describes his mood as "tired." He denies any thoughts of harm to self or others. He denies any hallucinations. Cognitively appears to be grossly intact. His insight is adequate, judgment shows evidence of recent impairment. I do not note any disorientation. STRENGTHS/WEAKNESSES: Strengths- some supports, agreeable for treatment; weaknesses-Coping skills INTELLECTUAL FUNCTIONING: Average IMPRESSIONS: Unspecified depressive disorder; history of opioid use disorder; rule out stimulant use disorder PLAN: Patient be admitted to the inpatient psychiatric unit [facility] on a voluntary basis. He is agreeable to sign an individual for a voluntary form. Baseline laboratory workup will be done the patient and medical consultation will be ordered. He will placed on SP 15 minute precautions. We will initiate Lexapro to help with depressive component. We' ll monitor for any medication side effects. We will look into a family supports. He will participate group and activity therapies. Estimated length of stay is 3-5 days. Prognosis is guarded.
[2018-12-06] MEDS: NICOTINE 21MG/24HR PATCH TRANSDERM SCH (07:54)
[2018-12-06] MEDS: LORazepam 0.5 MG TAB PO PRN (08:56)
[2018-12-06] MEDS ORDERED: ESCITALOPRAM 5 MG TAB PO SCH (09:00)
--- NOTE | 2018-12-06 16:30 | P.PN ---
Progress Note - Text Progress Note Date: 12/06/18 Interval history: Patient is seen again in cross coverage today. He reports that with the Lexapro this morning he felt more irritable. He prefers to stay off of psychotropic medication at this point in time. He states that things that he were feeling were substance related. He denies any current thoughts of harm to self or others. He talks of having upcoming appointments for follow- up. He does talk about a court hearing for his teenage daughter tomorrow for her using marijuana. Mental status exam: He is alert and cooperative with the interview. His speech is fluent, not rapid or pressured. His mood he describes as "fine." He denies any thoughts of harm to self or others. There is no evidence of any active psychosis or agitation. Plan: We'll discontinue Lexapro at this point time due to patient verbalizing side effects. He does not wish an alternative at this point in time. We will into to monitor his mood and monitor regarding any thoughts of suicide.
[2018-12-06] MEDS: DICLOFENAC SODIUM GEL 100 GM TUBE TOPICAL SCH (21:02)
[2018-12-07] MEDS: LORazepam 0.5 MG TAB PO PRN ×2 (08:28→20:12)
[2018-12-07] MEDS: DICLOFENAC SODIUM GEL 100 GM TUBE TOPICAL SCH ×2 (08:28→20:11)
[2018-12-07] MEDS: NICOTINE 14MG/24HR PATCH TRANSDERM SCH (10:40)
[2018-12-07] MEDS: NICOTINE 21MG/24HR PATCH TRANSDERM SCH (11:27)
--- NOTE | 2018-12-07 11:39 | P.PN ---
Progress Note - Text Interval history: The patient is found in group he follows me to an interview room. The patient was admitted over the weekend documentation from Dr. Wick was reviewed as well as notes from the emergency room. The patient was admitted as he was thought to be acutely suicidal. There are reports that he tried to hang himself with a belt gas into a door and it was reported that he overdosed with Effexor. The patient is well known to this service as he has had several admissions over the last several years. He is known to abuse substances specifically heroin and methamphetamine. He states that he had relapsed on heroin and then shortly after methamphetamine. He states he was up for 2 days because of methamphetamine and was acting out of character. He now states that he never overdose with Effexor stating "I lied about that". He does not recall attempting to hang himself. He reports feeling stressed due to the relationship with his girlfriend it seems they have reconciled and broken up a few times in the recent past. He is still torn as to whether or not he should and that relationship. He states he had 6 months of sobriety recently and he was doing well going to work etc. Mental status exam: The patient is alert he seated calmly in the chair he is dressed in his own clothing hygiene grooming adequate he is missing a tooth on his upper jaw. He reports his mood is fine today he would like to be discharged. He feels that whatever he said and did was due to the influence of methamphetamine. He reports no acute suicidal or homicidal thoughts she is endorsing no auditory or visual hallucinations or specific delusions. He demonstrates some mild hyperactivity but is directable. Overall he is cooperative. He is oriented to person place and date. Insight and judgment limited. He does not appear hypomanic or manic. Plan: The patient requires continued assessment as he remains in acute safety risk. He has recently engaged in suicidal type behavior. He does not wish to participate in inpatient chemical dependency treatment. We will monitor him for safety. He was tried on Lexapro over the weekend the patient states he does not wish to take an antidepressant as he is not depressed. He will consent to a family meeting with his father as long as it's when he is being discharged so that he can leave afterwards. We will encourage his participation in the milieu and monitor his mood and behavior over the next 24 hours as we determine a disposition.
[2018-12-08] MEDS: DICLOFENAC SODIUM GEL 100 GM TUBE TOPICAL SCH ×2 (08:41→20:17)
[2018-12-08] MEDS: NICOTINE 14MG/24HR PATCH TRANSDERM SCH (08:43)
[2018-12-08] MEDS: LORazepam 0.5 MG TAB PO PRN ×2 (10:32→20:19)
--- NOTE | 2018-12-08 11:15 | P.PN ---
Progress Note - Text Interval history: The patient is found in group he follows me to an interview room. He indicates his mood is improving. He has been compliant with groups and appropriately contributing. Staff report no behavioral disturbances. He is agreeable to having his father come up for a support meeting tomorrow. Mental status exam: The patient is alert he is dressed in hospital gowns. Hygiene grooming adequate. Eye contact is appropriate. He does have a chronic hearing deficit. He is reporting no suicidal or homicidal ideation intent or plan. He is reporting no auditory or visual hallucinations or specific delusions. There is no observed evidence of psychosis. He demonstrates no evidence of hypomania or josé miguel. He demonstrates no verbal or physical aggressiveness. Affect is appropriately expressive. He states that he has ample support as an outpatient he describes his short-term goals upon discharge. Plan: The patient will continue observing him for safety. We will encourage continued participation in the milieu. Social work will arrange a support meeting for tomorrow. If he remains clinically stable we anticipate discharging him tomorrow.
[2018-12-09 06:37] VITALS: BP 110/53; PULSE 63; RESP 16; TEMP 97.8
[2018-12-09] MEDS: DICLOFENAC SODIUM GEL 100 GM TUBE TOPICAL SCH (08:05)
[2018-12-09] MEDS: NICOTINE 14MG/24HR PATCH TRANSDERM SCH (08:05)
--- NOTE | 2018-12-09 10:20 | P.DS ---
Providers Date of admission: 12/04/18 22:43 Expected date of discharge: 12/09/18 Attending physician: Chico Moreno Consults: 12/04/18 23:50 Consult Physician Routine Consulting Provider: Padmini Physician Consult Reason/Comments: Medical Management Do you want consulting provider notified?: Yes Primary care physician: Arthur Palomino MD - Discharge Diagnosis(es) (1) Depression Current Visit: No Status: Chronic Priority: Medium (2) Opioid use disorder Current Visit: Yes Status: Acute Priority: High (3) Methamphetamine use disorder, moderate Current Visit: Yes Status: Acute Priority: High Hospital Course: Brief summary of admission note: The patient is a 38-year-old single male who was admitted to the mental health unit for suicidal ideation. The patient had text did his father stating he was going to kill himself. The patient had gestured with a belt around his neck. This occurred in the context of him recently using heroin and being under the influence of methamphetamine. He had stated he overdosed with Effexor and then later reported that was untrue. The patient was brought to the emergency room for evaluation. During that time he eloped from the emergency room and the police had to be called to bring him back. He was seen by Dr. Wick these refer to his psychiatric evaluation for full detail. Summary of hospital course: The patient was admitted to the mental health unit he did sign in voluntarily. He was initially evaluated by Dr. Wick. It appears that Lexapro was ordered but after 1 dose the patient felt very uncomfortable with it and refused any further psychotropic medication. I assumed care of the patient this past Friday. The patient reported that he is not depressed and that his presenting symptoms were due to recent heroin use and methamphetamine use. The patient is well known to me as I have treated him several times over the years. He indicates that he did have 6 months of sobriety. He does work with a therapist and a physician out of the area. The patient attended select groups. He demonstrated no agitated behavior. He reported no suicidal ideation intent or plan while on the mental health unit. He demonstrated no psychosis. He was able to care for himself in terms of meeting his ADLs. The patient is not amenable to participating in inpatient chemical dependency treatment again. He has been on the Vivitrol injection and plans on getting his next 1 tomorrow. His father will be coming up for a support meeting this morning. Mental status exam: The patient is alert he is dressed in his own clothing hygiene grooming adequate. Speech is fluent spontaneous nonpressured. He indicates his mood is good. He denies having any suicidal or homicidal ideation intent or plan. He is reporting no auditory or visual hallucinations or any specific delusions. There is no observed evidence of psychosis. He demonstrates no tangential thinking loose associations or flight of ideas. He does not appear hypomanic or manic. Affect is appropriately expressive. Insight and judgment have improved. He is oriented to person place and date. Impressions 1. Depression unspecified, opioid use disorder, methamphetamine use disorder, rule out substance-induced mood symptoms Plan: The patient will be discharged from the mental health unit today. The patient does not require any prescribed psychotropic medication at this time. He does not wish to participate in inpatient chemical dependency treatment. He will follow up with his outpatient providers for his mental health care and substance use. He is scheduled to receive his Vivitrol injection tomorrow. There is no imminent safety risk at this time. At length we discussed the need for him to abstain from alcohol marijuana and all substances as they will likely provoke mood symptoms again and elevate his safety risk. He is instructed to return to the hospital with any acute safety concerns. Patient Condition at Discharge: Stable Plan - Discharge Summary Discharge Rx Participant: No New Discharge Prescriptions: New Nicotine 14Mg/24Hr Patch [Habitrol] 1 patch TRANSDERM DAILY #14 patch Nicotine 7Mg/24Hr Patch [Habitrol] 1 patch TRANSDERM DAILY #14 patch.[id number] Discharge Medication List Nicotine 14Mg/24Hr Patch [Habitrol] 1 patch TRANSDERM DAILY #14 patch 12/09/18 [ Rx] Nicotine 7Mg/24Hr Patch [Habitrol] 1 patch TRANSDERM DAILY #14 patch.[email or web address] [Rx] Follow up Appointment(s)/Referral(s): [facility] [Other] - 12/10/18 1:00 pm [facility]rapist [Other] - 12/10/18 12:00 pm [facility] [Outside] - 1-2 Days (Walk In Friday 8:30-3pm 8:30-3pm)
[2018-12-09 10:36] LABS: Appearance,Urine Clear (Clear); Bilirubin,Urine Negative (Negative); Blood,Urine Negative (Negative); Color,Urine Yellow; Glucose,Urine (UA) Negative (Negative); Ketones,Urine Negative (Negative); Leukocyte Esterase,Urine Negative (Negative); Nitrite,Urine Negative (Negative); Protein,Urine Negative (Negative); Specific Gravity,Urine 1.022 (1.001-1.035)
== END 2018-12-09 12:25 | disposition home or self-care (01) | DRG 881 ==
LOC: EC 15:02 → 3MHU 22:43
PROVIDERS: ADMIT Psychiatry & Neurology Psychiatry; ATTEND Psychiatry & Neurology Psychiatry
DX: F32.9 Major depressive disorder, single episode, unspecified (principal); T71.162A Asphyxiation due to hanging, intentional self-harm, initial encounter; F15.20 Other stimulant dependence, uncomplicated; H90.3 Sensorineural hearing loss, bilateral; T43.212A Poisoning by selective serotonin and norepinephrine reuptake inhibitors, intentional self-harm, initial encounter; F11.10 Opioid abuse, uncomplicated; F41.9 Anxiety disorder, unspecified; F60.3 Borderline personality disorder; F17.200 Nicotine dependence, unspecified, uncomplicated; Z91.5 Personal history of self-harm; Z90.49 Acquired absence of other specified parts of digestive tract; Y92.009 Unspecified place in unspecified non-institutional (private) residence as the place of occurrence of the external cause; Z82.49 Family history of ischemic heart disease and other diseases of the circulatory system
CPT/HCPCS: 36415; 70498; 71045; 80053; 80306; 80320; 81003; 82075; 83520; 83605; 84443; 85025; 85610; 93005; 96374; 99291